=== PATIENT | female | born 1990 | race Two or more races ===

== ENCOUNTER 2016-09-30 06:25 | Day surgery (SDC) | payer OTHER ==
[~2016-09-30 06:25] MED LIST: Lactated Ringers 1,000 ML IV SCH
--- NOTE | 2016-09-30 07:07 | PCM.PREANE ---
Preanesthetic Assessment - Anesthesia/Transfusion/Family Hx Anesthesia History: Prior Anesthesia Without Reaction Family History of Anesthesia Reaction: No Transfusion History: No Prior Transfusion(s) Intubation History: Unknown - Review of Systems General: No Symptoms Pulmonary: No Symptoms Cardiovascular: No Symptoms Gastrointestinal: No symptoms, Nausea Other: Reports: None - Physical Assessment NPO Status Date: 09/29/16 NPO Status Time: 21:00 O2 Sat by Pulse Oximetry: 98 Respiratory Rate: 16 Vital Signs: Last Vital Signs Temp 36.5 C 09/30/16 06:45 Pulse 83 09/30/16 06:45 Resp 16 09/30/16 06:45 BP 111/60 09/30/16 06:45 Pulse Ox 98 09/30/16 06:45 Height: 1.57 m Weight: 86.636 kg ASA Class: 2 Mental Status: Alert & Oriented x3 Airway Class: Mallampati = 2 Dentition: Reports: Normal Dentition Thyro-Mental Finger Breadths: 3 Mouth Opening Finger Breadths: 3 ROM/Head Extension: Full Lungs: Clear to auscultation, Normal respiratory effort Cardiovascular: Regular Rate, Regular Rhythm - Allergies Allergies/Adverse Reactions: Allergies Allergy/AdvReac Type Severity Reaction Status Date / Time No Known Allergies Allergy Verified 09/28/16 15:49 - Blood Blood Available: No - Anesthesia Plan Pre-Op Medication Ordered: None - Acknowledgements Anesthesia Type Planned: General Anesthesia Pt an Appropriate Candidate for the Planned Anesthesia: Yes Alternatives and Risks of Anesthesia Discussed w Pt/Guardian: Yes Pt/Guardian Understands and Agrees with Anesthesia Plan: Yes PreAnesthesia Questionnaire Genitourinary History: Reports: None 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 [No Known Home Meds] 09/28/16 [History] - CURRENT (IN HOUSE) MEDS Current Meds: Current Medications Lactated Ringer's (Ringers, Lactated) 1,000 mls @ 125 mls/hr IV ASDIRECTED NATE Last Admin: 09/30/16 06:46 Dose: 125 mls/hr
[2016-09-30] MEDS ORDERED: Ketorolac 30 MG/ML SDV ONE (07:17)
[2016-09-30] MEDS ORDERED: Ondansetron 4 MG/2 ML SDV ONE (07:17)
[2016-09-30] MEDS ORDERED: Lidocaine 2% 5 ML SDV ONE (07:17)
[2016-09-30] MEDS ORDERED: Propofol 200 MG/20 ML SDV ONE (07:18)
[2016-09-30] MEDS ORDERED: Midazolam 1 MG/ML 2 ML SDV ONE (07:18)
[2016-09-30] MEDS ORDERED: fentaNYL 100 MCG/2 ML SDV ONE (07:18)
[2016-09-30] MEDS ORDERED: Morphine 4 MG/ML Syringe IVPUSH PRN (08:40)
[2016-09-30] MEDS ORDERED: Acetaminophen/oxyCODONE 325-5 MG Tab PO PRN ×2 (08:40)
[2016-09-30] MEDS ORDERED: Promethazine 25 MG/ML SDV IM PRN (08:40)
[2016-09-30] MEDS ORDERED: Ketorolac 30 MG/ML SDV IVPUSH ONE (08:40)
[2016-09-30] MEDS ORDERED: Morphine 2 MG/ML Syringe IVPUSH PRN (08:40)
[2016-09-30] MEDS ORDERED: Ondansetron 4 MG/2 ML SDV IVPUSH PRN (08:40)
--- NOTE | 2016-09-30 08:43 | PCM.OPNOTE ---
- General Post-Op/Procedure Note Date of Surgery/Procedure: 09/30/16 Findings: POC Pre Op Diagnosis: Blighted Ovum Post-Op Diagnosis: Same Anesthesia Technique: General mask Primary Surgeon: Morgan Bernstein Line Server: Lina Garcia EBL in mLs: 50 Complications: None Condition: Good
--- NOTE | 2016-09-30 08:44 | PCM.DCSUM1 ---
Discharge Summary - Discharge Data Discharge Date: 09/30/16 Discharge Disposition: Home, Self-Care 01 Condition: Good - Patient Instructions Diet: Usual Diet as Tolerated Activity: As Tolerated Notify Provider of: Fever, Increased Pain, Swelling and Redness, Nausea and/or Vomiting - Discharge Plan Home Medications: Home Meds . [No Known Home Meds] 09/28/16 [History] - General Info Date of Service: 09/30/16 Functional Status: Reports: pain controlled - Review of Systems General: Reports: No Symptoms HEENT: Reports: no symptoms Pulmonary: Reports: no symptoms Cardiovascular: Reports: No Symptoms Gastrointestinal: Reports: No symptoms Genitourinary: Reports: no symptoms Musculoskeletal: Reports: no symptoms Skin: Reports: no symptoms Neurological: Reports: No Symptoms Psychiatric: Reports: no symptoms - Patient Data Vitals - Most Recent: Last Vital Signs Temp 36.6 C 09/30/16 08:33 Pulse 98 09/30/16 08:42 Resp 18 09/30/16 08:33 BP 95/54 L 09/30/16 08:42 Pulse Ox 100 09/30/16 08:33 Weight - Most Recent: 86.636 kg Lab Results - Last 24 hrs: Laboratory Results - last 24 hr 09/30/16 09/30/16 Range/Units 06:23 06:23 WBC 6.50 (4.0-11.0) K/uL RBC 4.28 L (4.30-5.90) M/uL Hgb 12.0 (12.0-16.0) g/dL Hct 36.2 (36.0-46.0) % MCV 84.6 (80.0-98.0) fL MCH 28.0 (27.0-32.0) pg MCHC 33.1 (31.0-37.0) g/dL RDW Std Deviation 48.4 (28.0-62.0) fl RDW Coeff of Shilpi 16 H (11.0-15.0) % Plt Count 206 (150-400) K/uL MPV 11.40 (7.40-12.00) fL Nucleated RBC % 0.0 /100WBC Nucleated RBCs # 0 K/uL Blood Type A POSITIVE Antibody Screen NEGATIVE Med Orders - Current: Current Medications Fentanyl (Sublimaze) 50 mcg IVPUSH Q5M PRN PRN Reason: Pain (severe 7-10) Stop: 10/01/16 08:38 Lactated Ringer's (Ringers, Lactated) 1,000 mls @ 125 mls/hr IV ASDIRECTED NATE Last Admin: 09/30/16 06:46 Dose: 125 mls/hr Ketorolac Tromethamine (Toradol) 30 mg IVPUSH ONETIME ONE Stop: 09/30/16 08:41 Ketorolac Tromethamine (Toradol) 30 mg IVPUSH Q6H PRN PRN Reason: Pain (severe 7-10) Stop: 10/05/16 08:40 Morphine Sulfate (Morphine) 2 mg IVPUSH Q2H PRN PRN Reason: Pain (severe 7-10) Morphine Sulfate (Morphine) 4 mg IVPUSH Q2H PRN PRN Reason: Pain (severe 7-10) Ondansetron HCl (Zofran) 4 mg IVPUSH Q6H PRN PRN Reason: Nausea/Vomiting Oxycodone/Acetaminophen (Percocet 325-5 Mg) 1 tab PO Q4H PRN PRN Reason: Pain (moderate 4-6) Oxycodone/Acetaminophen (Percocet 325-5 Mg) 2 tab PO Q4H PRN PRN Reason: Pain (moderate 4-6) Promethazine HCl (Phenergan) 25 mg IM Q6H PRN PRN Reason: Nausea/Vomiting Discontinued Medications Fentanyl (Sublimaze) Confirm Administered Dose 100 mcg .ROUTE .STK-MED ONE Stop: 09/30/16 07:19 Ketorolac Tromethamine (Toradol) Confirm Administered Dose 30 mg .ROUTE .STK- MED ONE Stop: 09/30/16 07:18 Lidocaine (Xylocaine-Mpf 2%) Confirm Administered Dose 5 ml .ROUTE .STK-MED ONE Stop: 09/30/16 07:18 Midazolam HCl (Versed 1 Mg/Ml) Confirm Administered Dose 2 mg .ROUTE .STK-MED ONE Stop: 09/30/16 07:19 Ondansetron HCl (Zofran) Confirm Administered Dose 4 mg .ROUTE .STK-MED ONE Stop: 09/30/16 07:18 Propofol (Diprivan 20 Ml) Confirm Administered Dose 200 mg .ROUTE .STK-MED ONE Stop: 09/30/16 07:19 - Exam General: Reports: alert, oriented HEENT: Reports: Pupils equal, Pupils reactive, EOMI, Mucous membr. moist/pink Neck: Reports: supple Lungs: Reports: Clear to auscultation, Normal respiratory effort Cardiovascular: Reports: Regular Rate, Regular Rhythm Abdomen: Reports: bowel sounds present, soft, no tenderness, no distension (Female) Exam: Normal External Exam, Normal Speculum Exam, Normal Bimanual Exam Rectal (Female) Exam: Normal Exam, Normal Rectal Tone Back Exam: Reports: Normal Inspection, Full Range of Motion Extremities: Reports: no edema, normal pulses Skin: Reports: warm, dry, intact Wound/Incisions: Reports: healing well Neurological: Reports: no new focal deficit Psy/Mental Status: Reports: alert, normal affect, normal mood *Q Meaningful Use (DIS) - VTE *Q VTE Criteria *Q: - Stroke *Q Stroke Criteria *Q: - AMI *Q AMI Criteria *Q:
[2016-09-30] MEDS: fentaNYL 100 MCG/2 ML SDV IVPUSH PRN ×2 (08:45→08:50)
--- NOTE | 2016-09-30 09:17 | PCM.POSTAN ---
POST ANESTHESIA ASSESSMENT - MENTAL STATUS Mental Status: alert, oriented - RESPIRATORY Respiratory Status: respiratory rate WNL, airway patent, O2 saturation stable - CARDIOVASCULAR CV Status: pulse rate WNL, blood pressure stable - GASTROINTESTINAL GI Status: no symptoms - PAIN Pain Score: 5 - POST OP HYDRATION Hydration Status: adequate & stable - OBSERVATIONS Free Text/Narrative:: no anesthesia problems
[2016-09-30 10:12] VITALS: BP 103/68
--- NOTE | 2016-09-30 10:47 | OR ---
SURGEON: Morgan Bernstein MD DATE OF PROCEDURE: PREOPERATIVE DIAGNOSIS: Blighted ovum. POSTOPERATIVE DIAGNOSIS: Blighted ovum. OPERATION PERFORMED: Dilatation and evacuation. DIRECTOR SUPPLIER QUALITY: DAYA Sanchez. ANESTHESIA: General mask. ESTIMATED BLOOD LOSS: 50 mL. COMPLICATION: None. INDICATION: This patient is 25. She was seen by our nurse quarrying specialist in the clinic, at the time of seeing the patient was 8 to 9 weeks. Vaginal probe ultrasound shows pole with no cardiac activity that was repeated and confirmed by repeated ultrasound. The patient was admitted for dilatation and evacuation after explaining all the options to her. PROCEDURE IN DETAIL: The patient was brought to the OR, properly identified, and after adequate level of anesthesia, the patient was prepped and draped in sterile fashion as usual. Weighted speculum was placed in the vagina. Straight catheter was used to empty the bladder. Single-tooth tenaculum was applied to the cervix and the cervix sequentially dilated to accommodate #8 cannula. The cannula was placed in the endometrial cavity and that cavity was suctioned, curettage, and evacuated completely from all products of conception. Once this was done, the procedure was ended, and cannula was removed from the endometrial cavity. There was minimum vaginal bleeding and after making sure that the patient has no noted bleeding, the procedure ended. Instrument and sponge count were correct. The patient tolerated the procedure well, went to recovery room in stable general condition. ELLIE / MICHAELA /[id number]
[2016-09-30] MEDS ORDERED: Ketorolac 30 MG/ML SDV IVPUSH PRN (15:00)
== END 2016-09-30 10:10 | disposition home or self-care (01) ==
LOC: MW.SDS 06:25
PROVIDERS: ATTEND Obstetrics & Gynecology
PROC: 10D07Z8 Extraction of Products of Conception, Other, Via Natural or Artificial Opening (ICD-10-PCS; principal; 2016-09-30)
DX: O02.0 Blighted ovum and nonhydatidiform mole (principal); E66.9 Obesity, unspecified; Z79.899 Other long term (current) drug therapy; Z98.890 Other specified postprocedural states; Z68.34 Body mass index [BMI] 34.0-34.9, adult
CPT/HCPCS: 36415; 59820; 85027; 86850; 86900; 86901; J1885; J2250; J2405; J3010; J7120; 01965; 88305; J2704

== ENCOUNTER 2017-04-16 11:17 | Emergency (ER) | payer OTHER, SELFPAY ==
--- NOTE | 2017-04-16 11:35 | EDM.PDOC ---
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 Past medical history: As per history of present illness and as reviewed below otherwise noncontributory. Surgical history: As per history of present illness and as reviewed below otherwise noncontributory. Social history: No reported history of drug or alcohol abuse. Family history: As per history of present illness and as reviewed below otherwise noncontributory. Physical exam: HEENT: Atraumatic, normocephalic, pupils reactive, negative for conjunctival pallor or scleral icterus, mucous membranes moist, throat clear, neck supple, nontender, trachea midline. Lungs: Clear to auscultation, breath sounds equal bilaterally, chest nontender. Heart: S1S2, regular, negative for clicks, rubs, or JVD. Abdomen: Soft, nondistended, nontender. Negative for masses or hepatosplenomegaly. Negative for costovertebral tenderness. Pelvis: Stable nontender. Genitourinary: Cervix closed no products of conception or clots there is a scant amount of blood in the vaginal vault otherwise no mass scar or lesion Rectal: Deferred. Extremities: Atraumatic, negative for cords or calf pain. Neurovascular unremarkable. Neuro: Awake, alert, oriented. Cranial nerves II through XII unremarkable. Cerebellum unremarkable. Motor and sensory unremarkable throughout. Exam nonfocal. Diagnostics: []Lab as below OB ultrasound limited Therapeutics: Vaginal rest Follow-up with Dr. Figueroa Impression: []Threatened IUP ABO type--A+ heart tones 160s LMP 11/01/2017 12 weeks 5 days by crown-rump length on today's ultrasound Cervix closed Definitive disposition and diagnosis as appropriate pending reevaluation and review of above. 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 ED EXAM, GENERAL - Physical Exam Exam: See Below Course - Vital Signs Last Recorded V/S: Last Vital Signs Temp 97.8 F 04/16/17 11:28 Pulse 97 04/16/17 11:28 Resp 18 04/16/17 11:28 BP 121/74 04/16/17 11:28 Pulse Ox 98 04/16/17 11:28 - Orders/Labs/Meds Orders: Active Orders 24 hr Category Date Time Status Heart Tones [ Heart Rate] [RC] Click to Edit Care 04/16/17 11:35 Inactive OB Ltd 1 or More Fetus [US] Stat Exams 04/16/17 11:33 Taken Labs: Laboratory Tests 04/16/17 04/16/17 04/16/17 Range/Units 11:42 11:42 11:42 WBC 7.50 (4.0-11.0) K/uL RBC 4.55 (4.30-5.90) M/uL Hgb 13.1 (12.0-16.0) g/dL Hct 38.8 (36.0-46.0) % MCV 85.3 (80.0-98.0) fL MCH 28.8 (27.0-32.0) pg MCHC 33.8 (31.0-37.0) g/dL RDW Std Deviation 48.4 (28.0-62.0) fl RDW Coeff of Shilpi 16 H (11.0-15.0) % Plt Count 212 (150-400) K/uL MPV 11.10 (7.40-12.00) fL Neut % (Auto) 66.7 (48.0-80.0) % Lymph % (Auto) 22.7 (16.0-40.0) % [place] % (Auto) 5.5 (0.0-15.0) % Eos % (Auto) 4.8 (0.0-7.0) % Baso % (Auto) 0.3 (0.0-1.5) % Neut # (Auto) 5.0 (1.4-5.7) K/uL Lymph # (Auto) 1.7 (0.6-2.4) K/uL [place] # (Auto) 0.4 (0.0-0.8) K/uL Eos # (Auto) 0.4 (0.0-0.7) K/uL Baso # (Auto) 0.0 (0.0-0.1) K/uL Nucleated RBC % 0.0 /100WBC Nucleated RBCs # 0 K/uL Sodium 139 (136-146) mmol/L Potassium 3.9 (3.5-5.1) mmol/L Chloride 107 (98-110) mmol/L Carbon Dioxide 21 (21-31) mmol/L BUN 7 (6.0-23.0) mg/dL Creatinine 0.8 (0.6-1.5) mg/dL Est Cr Clr Drug Dosing 84.28 mL/min Estimated GFR (MDRD) > 60.0 ml/min Glucose 82 (60-110) mg/dL Calcium 9.4 (8.8-10.8) mg/dL Total Bilirubin 0.4 (0.1-1.5) mg/dL AST 23 (5-40) IU/L ALT 40 (8-54) IU/L Alkaline Phosphatase 57 (40-150) Total Protein 7.6 (6.0-8.0) g/dL Albumin 4.1 (3.5-5.0) g/dL Globulin 3.5 (2.0-3.5) g/dL Albumin/Globulin Ratio 1.2 L (1.3-2.8) HCG, Quant mIU/mL Blood Type A POSITIVE 04/16/17 Range/Units 11:42 WBC (4.0-11.0) K/uL RBC (4.30-5.90) M/uL Hgb (12.0-16.0) g/dL Hct (36.0-46.0) % MCV (80.0-98.0) fL MCH (27.0-32.0) pg MCHC (31.0-37.0) g/dL RDW Std Deviation (28.0-62.0) fl RDW Coeff of Shilpi (11.0-15.0) % Plt Count (150-400) K/uL MPV (7.40-12.00) fL Neut % (Auto) (48.0-80.0) % Lymph % (Auto) (16.0-40.0) % [place] % (Auto) (0.0-15.0) % Eos % (Auto) (0.0-7.0) % Baso % (Auto) (0.0-1.5) % Neut # (Auto) (1.4-5.7) K/uL Lymph # (Auto) (0.6-2.4) K/uL [place] # (Auto) (0.0-0.8) K/uL Eos # (Auto) (0.0-0.7) K/uL Baso # (Auto) (0.0-0.1) K/uL Nucleated RBC % /100WBC Nucleated RBCs # K/uL Sodium (136-146) mmol/L Potassium (3.5-5.1) mmol/L Chloride (98-110) mmol/L Carbon Dioxide (21-31) mmol/L BUN (6.0-23.0) mg/dL Creatinine (0.6-1.5) mg/dL Est Cr Clr Drug Dosing mL/min Estimated GFR (MDRD) ml/min Glucose (60-110) mg/dL Calcium (8.8-10.8) mg/dL Total Bilirubin (0.1-1.5) mg/dL AST (5-40) IU/L ALT (8-54) IU/L Alkaline Phosphatase (40-150) Total Protein (6.0-8.0) g/dL Albumin (3.5-5.0) g/dL Globulin (2.0-3.5) g/dL Albumin/Globulin Ratio (1.3-2.8) HCG, Quant 26297.5 mIU/mL Blood Type Departure - Departure Time of Disposition: 13:43 Disposition: Home, Self-Care 01 Condition: Good Clinical Impression: Threatened - Discharge Information Referrals: Morgan Bernstein MD [Primary Care Provider] - Forms: ED Department Discharge Additional Instructions: Vaginal rest as discussed no douching tampons nothing per vagina Return if symptoms persist or worsen or new concerning symptoms develop Follow-up with Dr. bernstein as scheduled sooner as needed The following information is given to patients seen in the emergency department who are being discharged to home. This information is to outline your options for follow-up care. We provide all patients seen in our emergency department with a follow-up referral. The need for follow-up, as well as the timing and circumstances, are variable depending upon the specifics of your emergency department visit. If you don't have a primary care physician on staff, we will provide you with a referral. We always advise you to contact your personal physician following an emergency department visit to inform them of the circumstance of the visit and for follow-up with them and/or the need for any referrals to a consulting specialist. The emergency department will also refer you to a specialist when appropriate. This referral assures that you have the opportunity for follow-up care with a specialist. All of these measure are taken in an effort to provide you with optimal care, which includes your follow-up. Under all circumstances we always encourage you to contact your private physician who remains a resource for coordinating your care. When calling for follow-up care, please make the office aware that this follow-up is from your recent emergency room visit. If for any reason you are refused follow-up, please contact the [facility] emergency department at and asked to speak to the emergency department charge nurse. - My Orders Last 24 Hours: My Active Orders 04/16/17 11:33 OB Ltd 1 or More Fetus [US] Stat 04/16/17 11:35 Heart Tones [ Heart Rate] [RC] Click to Edit - Assessment/Plan Last 24 Hours: My Active Orders 04/16/17 11:33 OB Ltd 1 or More Fetus [US] Stat 04/16/17 11:35 Heart Tones [ Heart Rate] [RC] Click to Edit
[2017-04-16 12:09] LABS: CHLORIDE,CL 107 mmol/L (98-110); SODIUM,NA 139 mmol/L (136-146)
[2017-04-16 14:03] VITALS: BP 122/68
--- NOTE | 2017-04-18 14:01 | US ---
EXAM DATE: 04/16/17 PATIENT'S AGE: 26 Patient: VIOLETTA BRICEÑO Facility: [place], [place] Site . Site : 1990 Study: US OB Pelvis [id number]/16/2017 12:36:27 PM Ordering Physician: Maricruz Martinez Final Report: INDICATION: Vaginal bleeding. TECHNIQUE: Transabdominal scanning was performed. COMPARISON: None. FINDINGS: There is a living IUP with gestational age of 11 weeks 4 days by LMP and 12 weeks 5 days by today`s crown-rump length. EDC based on LMP is 11/01/2017. The embryonic heart rate is measured at 160 beats per minute. The placenta is forming anteriorly. A subchorionic hemorrhage of small to moderate size is demonstrated superiorly. Neither ovary is visualized. No adnexal mass or free fluid is apparent. IMPRESSION: 1. Living IUP with gestational age of 11 weeks 4 days by LMP and 12 weeks 5 days by today`s crown-rump length. 2. Subchorionic hemorrhage and small to moderate size. Dictated by Anish Llanes MD @ Apr 16 2017 1:24PM (Electronic Signature) Report Signed by Proxy. WHIT
== END 2017-04-16 14:01 | disposition home or self-care (01) ==
LOC: MW.ED 11:17
DX: O20.0 Threatened abortion (principal); Z3A.11 11 weeks gestation of pregnancy; E66.9 Obesity, unspecified
CPT/HCPCS: 36415; 76815; 76815-26; 80053; 84702; 85025; 86900; 86901; 99282; 99284-25

== ENCOUNTER 2017-10-24 04:36 | Inpatient (IN) | payer MEDICAID ==
[2017-10-24] MEDS ORDERED: Methylergonovine 0.2 MG/1 ML Amp IM PRN (06:01)
[2017-10-24] MEDS ORDERED: Water For Irrigation,Sterile 1,000 ML Container IRR PRN (06:01)
[2017-10-24] MEDS ORDERED: Sodium Chloride 0.9% 2.5 ML Syringe FLUSH PRN (06:01)
[2017-10-24] MEDS ORDERED: Butorphanol 1 MG/ML SDV IVPUSH PRN (06:01)
[2017-10-24] MEDS ORDERED: Misoprostol 200 MCG Tab PO PRN (06:01)
[2017-10-24] MEDS ORDERED: Tranexamic Acid 1,000 MG in Sodium Chloride 0.9% 100 ML IV PRN (06:01)
[2017-10-24] MEDS ORDERED: Carboprost Tromethamine 250 MCG/1 ML Amp IM PRN (06:01)
[2017-10-24] MEDS ORDERED: Nalbuphine 10 MG/ML 10 ML MDV IVPUSH PRN ×2 (06:01→08:42)
[2017-10-24] MEDS ORDERED: Lidocaine 1% 50 ML MDV INJECT PRN (06:01)
[2017-10-24] MEDS ORDERED: Sodium Chloride 0.9% 10 ML Syringe FLUSH PRN (06:01)
[2017-10-24] MEDS ORDERED: Lactated Ringers 1,000 ML IV SCH (06:15)
[2017-10-24] MEDS ORDERED: Morphine PF 1 MG/ML Amp ONE (07:25)
[2017-10-24] MEDS ORDERED: ePHEDrine 50 MG/ML SDV ONE (07:25)
[2017-10-24] MEDS ORDERED: ceFAZolin/Dextrose,Iso-Osmotic 2 GM/50 ML Duplex Bag IV ONE (07:26)
[2017-10-24] MEDS ORDERED: Nitroglycerin/D5W 0 MG/0 ML BOTTLE ONE (07:26)
[2017-10-24] MEDS ORDERED: Oxytocin 10 Units/1 ML SDV ONE (07:33)
[2017-10-24] MEDS ORDERED: Sodium Chloride 0.9% 20 ML ONE (07:33)
--- NOTE | 2017-10-24 07:36 | PCM.PREANE ---
Preanesthetic Assessment - Anesthesia/Transfusion/Family Hx Anesthesia History: Prior Anesthesia Without Reaction Family History of Anesthesia Reaction: No Transfusion History: No Prior Transfusion(s) Intubation History: Unknown - Review of Systems General: No Symptoms Pulmonary: No Symptoms Cardiovascular: No Symptoms Gastrointestinal: No Symptoms Neurological: No Symptoms - Physical Assessment NPO Status Date: 10/23/17 NPO Status Time: 18:00 Height: 1.57 m Weight: 94.801 kg ASA Class: 3 Mental Status: Alert & Oriented x3 Airway Class: Mallampati = 2 Dentition: Reports: Normal Dentition ROM/Head Extension: Full Lungs: Clear to Auscultation, Normal Respiratory Effort, Crackles Cardiovascular: Regular Rhythm - Lab Values: Laboratory Last Values WBC 11.19 K/uL (4.0-11.0) H 10/24/17 06:24 RBC 3.84 M/uL (4.30-5.90) L 10/24/17 06:24 Hgb 11.7 g/dL (12.0-16.0) L 10/24/17 06:24 Hct 34.0 % (36.0-46.0) L 10/24/17 06:24 MCV 88.5 fL (80.0-98.0) 10/24/17 06:24 MCH 30.5 pg (27.0-32.0) 10/24/17 06:24 MCHC 34.4 g/dL (31.0-37.0) 10/24/17 06:24 RDW Std Deviation 47.0 fl (28.0-62.0) 10/24/17 06:24 RDW Coeff of Shilpi 15 % (11.0-15.0) 10/24/17 06:24 Plt Count 141 K/uL (150-400) L 10/24/17 06:24 MPV 11.60 fL (7.40-12.00) 10/24/17 06:24 Nucleated RBC % 0.0 /100WBC 10/24/17 06:24 Nucleated RBCs # 0 K/uL 10/24/17 06:24 INR 0.90 10/24/17 06:24 APTT 25.4 SEC (18.6-31.3) 10/24/17 06:24 Fibrinogen 343 mg/dL (215-411) 10/24/17 06:24 Blood Type A POSITIVE 10/24/17 06:24 Antibody Screen NEGATIVE 10/24/17 06:24 KB Screen SEE NOTE 10/24/17 06:24 Crossmatch See Detail 10/24/17 06:24 - Allergies Allergies/Adverse Reactions: Allergies Allergy/AdvReac Type Severity Reaction Status Date / Time No Known Allergies Allergy Verified 10/21/17 01:08 - Anesthesia Plan Pre-Op Medication Ordered: Antacids - Acknowledgements Anesthesia Type Planned: Spinal Pt an Appropriate Candidate for the Planned Anesthesia: Yes Alternatives and Risks of Anesthesia Discussed w Pt/Guardian: Yes Pt/Guardian Understands and Agrees with Anesthesia Plan: Yes Additional Comments: urgent called on patient who just arrived in active labor with dx of vaginal bleeding/ presumed abruption. Bleeding minor at this point. Pt G5. Has iv x 2, is cooperative but anxious. Chart reviewed, pt examined, discussion made with hand mold maker. Plan urgent c/s, with planned spinal anesthetic, since no immediate danger to mother or child. Will change plan to emergent GET if conditions change. 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) Musculoskeletal History: Reports: None Neurological History: Reports: None Psychiatric History: Reports: None Endocrine/Metabolic History: Reports: None, Obesity/BMI 30+ Hematologic History: Reports: None Immunologic History: Reports: None Oncologic (Cancer) History: Reports: None Dermatologic History: Reports: None - Infectious Disease History Infectious Disease History: Reports: Chicken Pox - Past Surgical History Head Surgeries/Procedures: Reports: None GI Surgical History: Reports: None Female Surgical History: Reports: Section, Other (See Below) Other Female Surgeries/Procedures: Breech presentation - SUBSTANCE USE Smoking Status *Q: Never Smoker Second Hand Smoke Exposure: No Recreational Drug Use History: No - HOME MEDS Home Medications: Home Meds Zad786/FA/Omega3/Dha/Fish Oil [ Gummies] 1 each PO DAILY 04/16/17 [ History] - CURRENT (IN HOUSE) MEDS Current Meds: Current Medications Butorphanol Tartrate (Stadol) 1 mg IVPUSH Q1H PRN PRN Reason: Pain Carboprost Tromethamine (Hemabate Ds) 250 mcg IM ASDIRECTED PRN PRN Reason: Post Hemorrhage Tranexamic Acid 1,000 mg/ (Sodium Chloride) 110 mls @ 660 mls/hr IV ONETIME PRN PRN Reason: Bleeding Lactated Ringer's (Ringers, Lactated) 1,000 mls @ 150 mls/hr IV ASDIRECTED NATE Last Admin: 10/24/17 06:41 Dose: 150 mls/hr Lidocaine HCl (Xylocaine 1%) 50 ml INJECT .ONCE PRN PRN Reason: Laceration repair Methylergonovine Maleate (Methergine) 0.2 mg IM ASDIRECTED PRN PRN Reason: Post Hemorrhage Misoprostol (Cytotec) 200 mcg PO .ONCE PRN PRN Reason: Post Hemorrhage Nalbuphine HCl (Nubain) 10 mg IVPUSH Q1H PRN PRN Reason: Pain (severe 7-10) Sodium Chloride (Saline Flush) 10 ml FLUSH ASDIRECTED PRN PRN Reason: Keep Vein Open Sodium Chloride (Saline Flush) 2.5 ml FLUSH ASDIRECTED PRN PRN Reason: Keep Vein Open Sterile Water (Sterile Water For Irrigation) 1,000 ml IRR ASDIRECTED PRN PRN Reason: delivery Discontinued Medications Cefazolin Sodium/Dextrose (Ancef) Confirm Administered Dose 2 gm IV .STK-MED ONE Stop: 10/24/17 07:27 Ephedrine Sulfate (Ephedrine Sulfate) Confirm Administered Dose 50 mg .ROUTE .STK-MED ONE Stop: 10/24/17 07:26 Nitroglycerin/Dextrose (Nitroglycerin 25 Mg/D5w 250 Ml) Confirm Administered Dose 25 mg in 250 mls @ as directed .ROUTE .STK-MED ONE Stop: 10/24/17 07:27 Morphine Sulfate (Duramorph Pf) Confirm Administered Dose 1 mg .ROUTE .STK-MED ONE Stop: 10/24/17 07:26
[2017-10-24] MEDS ORDERED: Phenylephrine/Normal Saline 100 MCG/ML 10 ML Syringe ONE (07:49)
[2017-10-24] MEDS ORDERED: Ondansetron 4 MG/2 ML SDV ONE (08:00)
[2017-10-24] MEDS ORDERED: Ondansetron 4 MG/2 ML SDV IV PRN (08:33)
[2017-10-24] MEDS ORDERED: Bisacodyl 10 MG Supp RECTAL PRN (08:33)
[2017-10-24] MEDS ORDERED: diphenhydrAMINE 50 MG/ML SDV IVPUSH PRN (08:33)
[2017-10-24] MEDS ORDERED: Ibuprofen 800 MG Tab PO PRN (08:33)
[2017-10-24] MEDS ORDERED: Simethicone 80 MG Tab.Chew PO PRN (08:33)
[2017-10-24] MEDS ORDERED: Lanolin 100% Cream 7 GM Tube TOP PRN (08:33)
[2017-10-24] MEDS ORDERED: Aluminum Hydroxide/Magnesium Hydroxide/Simethicone Susp 30 ML Cup PO PRN (08:33)
[2017-10-24] MEDS ORDERED: fentaNYL 100 MCG/2 ML SDV IVPUSH PRN (08:42)
--- NOTE | 2017-10-24 08:46 | PCM.OPNOTE ---
- General Post-Op/Procedure Note Date of Surgery/Procedure: 10/24/17 Operative Procedure(s): Repeat LTCS Findings: Viable male APGARs 9, 9 weight 3760 gm. Abrupted placenta--to pathology. Pre Op Diagnosis: 38/5 week IUP. Placental abruption. Previous c section Post-Op Diagnosis: Same Anesthesia Technique: Spinal Primary Surgeon: Macy Cordero Pathology: placenta to path Fluid Replacement, Intraop: 1,500 EBL in mLs: 700 Complications: none known Condition: Good Free Text/Narrative:: Intake & Output 10/23/17 10/24/17 10/24/17 22:59 06:59 14:59 Output Total 100 Balance -100 Dictation [id number]
--- NOTE | 2017-10-24 09:27 | PCM.POSTAN ---
POST ANESTHESIA ASSESSMENT - MENTAL STATUS Mental Status: Alert, Oriented - RESPIRATORY Respiratory Status: Respiratory Rate WNL, Airway Patent, O2 Saturation Stable - CARDIOVASCULAR CV Status: Pulse Rate WNL, Blood Pressure Stable - GASTROINTESTINAL GI Status: No Symptoms - POST OP HYDRATION Hydration Status: Adequate & Stable
[2017-10-24] MEDS: Docusate Sodium 100 MG Cap PO SCH (10:09)
[2017-10-24] MEDS ORDERED: Promethazine 25 MG/ML SDV IM ONE (11:42)
--- NOTE | 2017-10-24 13:36 | OR ---
SURGEON: Macy Cordero M.D. DATE OF PROCEDURE: 10/24/2017 PREOPERATIVE DIAGNOSES: 1. 38 and 5 week intrauterine . 2. Placental abruption. 3. Previous section. POSTOPERATIVE DIAGNOSES: 1. 38 and 5 week intrauterine . 2. Placental abruption. 3. Previous section. PROCEDURE: Repeat low-transverse section. ANESTHESIA: Spinal. ESTIMATED BLOOD LOSS: 700 mL. FLUID: 1500 mL crystalloid in OR. FINDINGS: Viable male score 9 at 1 minute, 9 at 5 minutes. Weight of 3760 g. Placental abruption. DISPOSITION: The patient to PACU. Infant to nursery, stable. PROCEDURE IN DETAIL: Radha is a 26-year-old, G5, P2-0-2-2, at 38 and 5 weeks' gestational age, who presents acutely this morning with intense contractions occurring approximately 1 minute apart. With monitoring the heart tones in the 130s with variability and good accelerations, but there is tachy systole present. Shortly after being monitored, she was found to be 2 cm dilated with membranes still intact. Shortly after being monitored, there was a bright red gush of blood vaginally. I was called. Labs were performed. Two IVs were initiated, came in to assess the patient. She is having still having contractions every 1 minute. She still only 2 to 3 cm dilated, head at -3. Membranes still intact. Findings are consistent with placental abruption. I have explained this to the patient and her . Even though she had initially wanted to trial of labor after , given the clinical scenario present, I advised it is best to proceed with delivery. They voiced understanding, agreed to proceed. Risks of procedure discussed including infection, bleeding, possible trauma surrounding bowel, bladder, ureter, in case of excessive blood loss need for blood transfusion, rare lifesaving circumstances, need for hysterectomy, risk for thromboembolic event, risk of anesthesia. Proper consent obtained. The patient was taken to the operating room where she underwent spinal anesthetic. heart tones are still 130s. She was placed in dorsal supine position leftward tilt. SCDs to lower extremities. Boyle to gravity. She was prepped and draped in the usual sterile fashion. A time-out was performed. Anesthesia was tested and found to be adequate. Previous Pfannenstiel scar was now excised. Subcutaneous tissue was incised down the level of the midline. Fascia was incised laterally, sharply and bluntly. Superior aspect of the fascia tented up, dissected sharply and bluntly from underlying muscles. Similar aspect performed in the inferior aspect of fascia. Rectus muscles were in the midline. The peritoneum was entered. Rectus muscles and peritoneum were lateralized bluntly. There was a sanguinous peritoneal fluid within the abdominal cavity noted. Self-retaining retractor now gently placed. Uterovesical reflection was visualized. Bladder flap was created sharply and bluntly, mobilized away from lower uterine segment. There was ecchymosis already developing along the majority of the uterus, especially along the left lateral side. Low-transverse hysterotomy was performed. Uterine cavity was entered with blunt-end scalpel. Hysterotomy was lateralized bluntly. 's amniotomy was performed. Sanguineous amniotic fluid was noted. The infant's head was flexed, delivered from the pelvis. The 's head was delivered followed by anterior shoulder, posterior shoulder, and remainder of the body without difficulty. Nuchal cord x1 was reduced manually. The infant's oropharynx and nares bulb suctioned. Infant was crying vigorously. Cord was clamped x2 and cut. Infant was handed off to attending physician, Dr. Sapp. Cord arterial, cord venous, cord blood sampling obtained. There was copious amount of blood clots within the uterine cavity already. The placenta was partially abrupting and was easily delivered. This will be sent to Pathology for further analysis. The uterine cavity was cleared of all clot and debris. Hysterotomy was repaired using 0 Vicryl in continuous running locked fashion followed by a re-imbricating layer. There was ecchymosis along the left lateral aspect of the uterus extending all the way to the fundus and it covers the entire posterior aspect of the uterus. Two areas of bleeding along the right lateral aspect of the hysterotomy was repaired with 2 [id number] sutures, hemostasis thereafter evident. Posterior aspect of the uterus other than the ecchymosis found to be intact. Region was well irrigated and suction dried. Uterus returned to the abdominal cavity. Colonic gutters were cleared of all clot and debris, well irrigated and suction dried. The hysterotomy was once again inspected and found to be hemostatic. Self-retaining retractor now gently removed. Bladder blade was placed. Hysterotomy once again inspected and found to be hemostatic. Rectus muscles were reapproximated using 0 Vicryl in inverted mattress suture technique. Anterior aspect of the muscle, and posterior aspect of fascia were closely inspected. Any areas of oozing were cauterized. The rectus fascia was reapproximated using 0 Vicryl in continuous running fashion beginning laterally on each side and tied in the midline. Subcutaneous tissue was well irrigated and suction dried. Any areas of oozing were cauterized. Skin was reapproximated using 3-0 Vicryl in subcuticular fashion on a Ankur needle followed by Mastisol and half-inch Steri-Strips. Sponge, instrument, needle count were correct x2. The patient has tolerated the procedure well overall. Her vital signs remained stable with adequate urine output. She will go to PACU in stable condition, infant to nursery. KOKO JENNINGS /[id number]
[2017-10-24] MEDS: Lactated Ringers 1,000 ML IV SCH ×2 (13:58→21:49)
[2017-10-24] MEDS: Acetaminophen/oxyCODONE 325-5 MG Tab PO PRN (23:51)
[2017-10-25] MEDS ORDERED: hydrOXYzine Pamoate 25 MG Cap ONE (02:55)
[2017-10-25] MEDS: Acetaminophen/oxyCODONE 325-5 MG Tab PO PRN ×5 (04:47→21:10)
[2017-10-25 06:35] LABS: CHLORIDE,CL 106 mmol/L (98-107); SODIUM,NA 139 mmol/L (136-145)
[2017-10-25] MEDS: Docusate Sodium 100 MG Cap PO SCH ×3 (07:34→21:09)
[2017-10-26] MEDS: Acetaminophen/oxyCODONE 325-5 MG Tab PO PRN ×3 (01:15→11:08)
[2017-10-26 08:15] VITALS: BP 115/81
--- NOTE | 2017-10-26 08:52 | PCM.PNPP ---
- General Info Date of Service: 10/25/17 Functional Status: Reports: Pain Controlled - Review of Systems General: Reports: No Symptoms HEENT: Reports: No Symptoms Pulmonary: Reports: No Symptoms Cardiovascular: Reports: No Symptoms Gastrointestinal: Reports: No Symptoms Genitourinary: Reports: No Symptoms Musculoskeletal: Reports: No Symptoms Skin: Reports: No Symptoms Neurological: Reports: No Symptoms Psychiatric: Reports: No Symptoms - General Info Date of Service: 10/25/17 - Patient Data Vital Signs - Most Recent: Last Vital Signs Temp 36.3 C 10/26/17 07:50 Pulse 87 10/26/17 07:50 Resp 16 10/26/17 07:50 BP 115/81 10/26/17 07:50 Pulse Ox 99 10/26/17 07:50 Weight - Most Recent: 94.801 kg Med Orders - Current: Current Medications Al Hydroxide/Mg Hydroxide (Mag-Al Plus) 30 ml PO Q8H PRN PRN Reason: Heartburn Bisacodyl (Dulcolax) 10 mg RECTAL .ONCE PRN PRN Reason: Constipation Butorphanol Tartrate (Stadol) 1 mg IVPUSH Q1H PRN PRN Reason: Pain Carboprost Tromethamine (Hemabate Ds) 250 mcg IM ASDIRECTED PRN PRN Reason: Post Hemorrhage Diphenhydramine HCl (Benadryl) 25 mg IVPUSH Q6H PRN PRN Reason: Itching or Nausea Docusate Sodium (Colace) 100 mg PO BID [facility] Last Admin: 10/25/17 21:09 Dose: 100 mg Emollient Ointment (Lansinoh Hpa) 0 gm TOP ASDIRECTED PRN PRN Reason: Sore Nipples Tranexamic Acid 1,000 mg/ (Sodium Chloride) 110 mls @ 660 mls/hr IV ONETIME PRN PRN Reason: Bleeding Lactated Ringer's (Ringers, Lactated) 1,000 mls @ 150 mls/hr IV ASDIRECTED [facility] Last Admin: 10/24/17 06:41 Dose: 150 mls/hr Lactated Ringer's (Ringers, Lactated) 1,000 mls @ 125 mls/hr IV ASDIRECTED [facility] Last Admin: 10/24/17 21:49 Dose: 125 mls/hr Ibuprofen (Motrin) 800 mg PO Q8H PRN PRN Reason: mild pain or fever Lidocaine HCl (Xylocaine 1%) 50 ml INJECT .ONCE PRN PRN Reason: Laceration repair Methylergonovine Maleate (Methergine) 0.2 mg IM ASDIRECTED PRN PRN Reason: Post Hemorrhage Misoprostol (Cytotec) 200 mcg PO .ONCE PRN PRN Reason: Post Hemorrhage Nalbuphine HCl (Nubain) 10 mg IVPUSH Q1H PRN PRN Reason: Pain (severe 7-10) Ondansetron HCl (Zofran) 4 mg IV Q4H PRN PRN Reason: Nausea/Vomiting Oxycodone/Acetaminophen (Percocet 325-5 Mg) 1 tab PO Q4H PRN PRN Reason: Pain (moderate 4-6) Last Admin: 10/25/17 11:45 Dose: 1 tab Oxycodone/Acetaminophen (Percocet 325-5 Mg) 2 tab PO Q4H PRN PRN Reason: Pain (moderate 4-6) Last Admin: 10/26/17 05:45 Dose: 2 tab Simethicone (Simethicone) 80 mg PO Q4H PRN PRN Reason: Gas Sodium Chloride (Saline Flush) 10 ml FLUSH ASDIRECTED PRN PRN Reason: Keep Vein Open Sodium Chloride (Saline Flush) 2.5 ml FLUSH ASDIRECTED PRN PRN Reason: Keep Vein Open Sterile Water (Sterile Water For Irrigation) 1,000 ml IRR ASDIRECTED PRN PRN Reason: delivery Discontinued Medications Cefazolin Sodium/Dextrose (Ancef) Confirm Administered Dose 2 gm IV .STK-MED ONE Stop: 10/24/17 07:27 Ephedrine Sulfate (Ephedrine Sulfate) Confirm Administered Dose 50 mg .ROUTE .STK-MED ONE Stop: 10/24/17 07:26 Fentanyl (Sublimaze) 50 mcg IVPUSH Q5M PRN PRN Reason: Pain (severe 7-10) Stop: 10/25/17 08:42 Hydroxyzine Pamoate (Vistaril) Confirm Administered Dose 50 mg .ROUTE .STK-MED ONE Stop: 10/25/17 02:56 Last Admin: 10/26/17 03:30 Dose: Not Given Nitroglycerin/Dextrose (Nitroglycerin 25 Mg/D5w 250 Ml) Confirm Administered Dose 25 mg in 250 mls @ as directed .ROUTE .STK-MED ONE Stop: 10/24/17 07:27 Sodium Chloride (Normal Saline) Confirm Administered Dose 20 mls @ as directed .ROUTE .STK-MED ONE Stop: 10/24/17 07:34 Morphine Sulfate (Duramorph Pf) Confirm Administered Dose 1 mg .ROUTE .STK-MED ONE Stop: 10/24/17 07:26 Nalbuphine HCl (Nubain) 2.5 mg IVPUSH Q3H PRN PRN Reason: Pruritis Stop: 10/25/17 08:42 Last Admin: 10/24/17 14:09 Dose: 2.5 mg Ondansetron HCl (Zofran) Confirm Administered Dose 4 mg .ROUTE .STK-MED ONE Stop: 10/24/17 08:01 Oxytocin (Pitocin) Confirm Administered Dose 30 unit .ROUTE .STK-MED ONE Stop: 10/24/17 07:34 Phenylephrine HCl (Phenylephrine In Ns 100 Mcg/Ml) Confirm Administered Dose 1 mg .ROUTE .STK-MED ONE Stop: 10/24/17 07:50 Promethazine HCl (Phenergan) 25 mg IM ONETIME ONE Stop: 10/24/17 11:43 Last Admin: 10/24/17 11:55 Dose: 25 mg - Interaction Infant Disposition, : in Room with Family Interaction: Holding Infant Feeding: Attempted ; Nursed Fair/Poor Support Person: - Recovery Exam Fundal Tone: Firm Fundal Level: 1 Fingerbreadths Below Umbilicus Fundal Placement: Midline Lochia Amount: Scant Lochia Color: Rubra/Red Perineum Description: Intact, Minimal Bruising/Swelling Episiotomy/Laceration: None Bladder Status: Voiding Urinary Elimination: Voided - Exam General: Alert, Oriented HEENT: Pupils Equal Neck: Supple Lungs: Clear to Auscultation, Normal Respiratory Effort Cardiovascular: Regular Rate, Regular Rhythm GI/Abdominal Exam: Normal Bowel Sounds, Soft, Non-Tender, No Organomegaly, No Distention, No Abnormal Bruit, No Mass, Pelvis Stable Extremities: Normal Inspection, Normal Range of Motion, Non-Tender, No Pedal Edema, Normal Capillary Refill Skin: Warm, Dry, Intact Wound/Incisions: Healing Well Neurological: No New Focal Deficit Psy/Mental Status: Alert, Normal Affect, Normal Mood - Problem List Review Problem List Initiated/Reviewed/Updated: Yes - Assessment Assessment:: doing well. discharge in am.
--- NOTE | 2017-10-26 08:55 | PCM.DCSUM1 ---
Discharge Summary - Hospital Course Diagnosis: Stroke: No - Discharge Data Discharge Date: 10/26/17 Discharge Disposition: Home, Self-Care 01 Condition: Good - Patient Summary/Data Operative Procedure(s) Performed: Repeat LTCS - Discharge Plan Home Medications: Home Meds [id number]/FA/Omega3/Dha/Fish Oil [ Gummies] 1 each PO DAILY 04/16/17 [ History] Referrals: [facility] [Outside] Katie Mays CNM [Mid-] - (1 week- November 09 @ 10:45am w/ Katie Mays 6 week- December 21 @ 10:45am w/ Katie Mays ) - General Info Date of Service: 10/26/17 Functional Status: Reports: Pain Controlled - Review of Systems General: Reports: No Symptoms HEENT: Reports: No Symptoms Pulmonary: Reports: No Symptoms Cardiovascular: Reports: No Symptoms Gastrointestinal: Reports: No Symptoms Genitourinary: Reports: No Symptoms Musculoskeletal: Reports: No Symptoms Skin: Reports: No Symptoms Neurological: Reports: No Symptoms Psychiatric: Reports: No Symptoms - Patient Data Vitals - Most Recent: Last Vital Signs Temp 36.3 C 10/26/17 07:50 Pulse 87 10/26/17 07:50 Resp 16 10/26/17 07:50 BP 115/81 10/26/17 07:50 Pulse Ox 99 10/26/17 07:50 Weight - Most Recent: 94.801 kg Med Orders - Current: Current Medications Al Hydroxide/Mg Hydroxide (Mag-Al Plus) 30 ml PO Q8H PRN PRN Reason: Heartburn Bisacodyl (Dulcolax) 10 mg RECTAL .ONCE PRN PRN Reason: Constipation Butorphanol Tartrate (Stadol) 1 mg IVPUSH Q1H PRN PRN Reason: Pain Carboprost Tromethamine (Hemabate Ds) 250 mcg IM ASDIRECTED PRN PRN Reason: Post Hemorrhage Diphenhydramine HCl (Benadryl) 25 mg IVPUSH Q6H PRN PRN Reason: Itching or Nausea Docusate Sodium (Colace) 100 mg PO BID [facility] Last Admin: 10/25/17 21:09 Dose: 100 mg Emollient Ointment (Lansinoh Hpa) 0 gm TOP ASDIRECTED PRN PRN Reason: Sore Nipples Tranexamic Acid 1,000 mg/ (Sodium Chloride) 110 mls @ 660 mls/hr IV ONETIME PRN PRN Reason: Bleeding Lactated Ringer's (Ringers, Lactated) 1,000 mls @ 150 mls/hr IV ASDIRECTED [facility] Last Admin: 10/24/17 06:41 Dose: 150 mls/hr Lactated Ringer's (Ringers, Lactated) 1,000 mls @ 125 mls/hr IV ASDIRECTED [facility] Last Admin: 10/24/17 21:49 Dose: 125 mls/hr Ibuprofen (Motrin) 800 mg PO Q8H PRN PRN Reason: mild pain or fever Lidocaine HCl (Xylocaine 1%) 50 ml INJECT .ONCE PRN PRN Reason: Laceration repair Methylergonovine Maleate (Methergine) 0.2 mg IM ASDIRECTED PRN PRN Reason: Post Hemorrhage Misoprostol (Cytotec) 200 mcg PO .ONCE PRN PRN Reason: Post Hemorrhage Nalbuphine HCl (Nubain) 10 mg IVPUSH Q1H PRN PRN Reason: Pain (severe 7-10) Ondansetron HCl (Zofran) 4 mg IV Q4H PRN PRN Reason: Nausea/Vomiting Oxycodone/Acetaminophen (Percocet 325-5 Mg) 1 tab PO Q4H PRN PRN Reason: Pain (moderate 4-6) Last Admin: 10/25/17 11:45 Dose: 1 tab Oxycodone/Acetaminophen (Percocet 325-5 Mg) 2 tab PO Q4H PRN PRN Reason: Pain (moderate 4-6) Last Admin: 10/26/17 05:45 Dose: 2 tab Simethicone (Simethicone) 80 mg PO Q4H PRN PRN Reason: Gas Sodium Chloride (Saline Flush) 10 ml FLUSH ASDIRECTED PRN PRN Reason: Keep Vein Open Sodium Chloride (Saline Flush) 2.5 ml FLUSH ASDIRECTED PRN PRN Reason: Keep Vein Open Sterile Water (Sterile Water For Irrigation) 1,000 ml IRR ASDIRECTED PRN PRN Reason: delivery Discontinued Medications Cefazolin Sodium/Dextrose (Ancef) Confirm Administered Dose 2 gm IV .STK-MED ONE Stop: 10/24/17 07:27 Ephedrine Sulfate (Ephedrine Sulfate) Confirm Administered Dose 50 mg .ROUTE .STK-MED ONE Stop: 10/24/17 07:26 Fentanyl (Sublimaze) 50 mcg IVPUSH Q5M PRN PRN Reason: Pain (severe 7-10) Stop: 10/25/17 08:42 Hydroxyzine Pamoate (Vistaril) Confirm Administered Dose 50 mg .ROUTE .STK-MED ONE Stop: 10/25/17 02:56 Last Admin: 10/26/17 03:30 Dose: Not Given Nitroglycerin/Dextrose (Nitroglycerin 25 Mg/D5w 250 Ml) Confirm Administered Dose 25 mg in 250 mls @ as directed .ROUTE .STK-MED ONE Stop: 10/24/17 07:27 Sodium Chloride (Normal Saline) Confirm Administered Dose 20 mls @ as directed .ROUTE .STK-MED ONE Stop: 10/24/17 07:34 Morphine Sulfate (Duramorph Pf) Confirm Administered Dose 1 mg .ROUTE .STK-MED ONE Stop: 10/24/17 07:26 Nalbuphine HCl (Nubain) 2.5 mg IVPUSH Q3H PRN PRN Reason: Pruritis Stop: 10/25/17 08:42 Last Admin: 10/24/17 14:09 Dose: 2.5 mg Ondansetron HCl (Zofran) Confirm Administered Dose 4 mg .ROUTE .STK-MED ONE Stop: 10/24/17 08:01 Oxytocin (Pitocin) Confirm Administered Dose 30 unit .ROUTE .STK-MED ONE Stop: 10/24/17 07:34 Phenylephrine HCl (Phenylephrine In Ns 100 Mcg/Ml) Confirm Administered Dose 1 mg .ROUTE .STK-MED ONE Stop: 10/24/17 07:50 Promethazine HCl (Phenergan) 25 mg IM ONETIME ONE Stop: 10/24/17 11:43 Last Admin: 10/24/17 11:55 Dose: 25 mg - Exam General: Reports: Alert, Oriented HEENT: Reports: Pupils Equal, Pupils Reactive, EOMI, Mucous Membr. Moist/[place]oll[place] Neck: Reports: Supple Lungs: Reports: Clear to Auscultation, Normal Respiratory Effort Cardiovascular: Reports: Regular Rate, Regular Rhythm GI/Abdominal Exam: Normal Bowel Sounds, Soft, Non-Tender, No Organomegaly, No Distention, No Abnormal Bruit, No Mass, Pelvis Stable (Female) Exam: Normal External Exam, Normal Speculum Exam, Normal Bimanual Exam Rectal (Female) Exam: Normal Exam, Normal Rectal Tone Back Exam: Reports: Normal Inspection, Full Range of Motion Extremities: Normal Inspection, Normal Range of Motion, Non-Tender, No Pedal Edema, Normal Capillary Refill Skin: Reports: Warm, Dry, Intact Wound/Incisions: Reports: Healing Well Neurological: Reports: No New Focal Deficit Psy/Mental Status: Reports: Alert, Normal Affect, Normal Mood
[2017-10-26] MEDS: Docusate Sodium 100 MG Cap PO SCH (11:07)
== END 2017-10-26 11:55 | disposition home or self-care (01) | DRG 766 ==
LOC: MW.OBCHECK 04:36 → MW.OB 04:39 → MW.OBCHECK 06:01 → OBSVTOIN 08:34 → MW.OB 09:29
PROVIDERS: ADMIT Obstetrics & Gynecology; ATTEND Obstetrics & Gynecology
PROC: 10D00Z1 Extraction of Products of Conception, Low, Open Approach (ICD-10-PCS; principal; 2017-10-24)
DX: O45.93 Premature separation of placenta, unspecified, third trimester (principal); Z3A.38 38 weeks gestation of pregnancy; Z37.0 Single live birth
CPT/HCPCS: 36415; 59025; 80048; 82803; 85027; 85384; 85610; 85730; 88307; A9270-GY; J0690; J2274; J2300; J2405; J2550; J2590; J7120

== ENCOUNTER 2021-02-18 13:42 | Emergency (ER) | payer BC ==
[2021-02-18] MEDS ORDERED: Sodium Chloride 0.9% 2.5 ML Syringe FLUSH PRN (14:07)
[2021-02-18] MEDS ORDERED: Sodium Chloride 0.9% 10 ML Syringe FLUSH PRN (14:07)
[2021-02-18] MEDS ORDERED: Sodium Chloride 0.9% 1,000 ML IV ONE (14:08)
--- NOTE | 2021-02-18 14:12 | EDM.PDOC ---
ED HPI GENERAL MEDICAL PROBLEM - General Chief Complaint: Respiratory Problem Stated Complaint: WHEEZING Time Seen by Provider: 02/18/21 13:46 - History of Present Illness INITIAL COMMENTS - FREE TEXT/NARRATIVE: History of present illness: []The patient is experienceing severe shortness of breath, especially on exertion. By ultrasound done 11/28/20 she is 33 weeks and 6 days . She was checked out today on OB floor first and concerns cleared. She is COVID positive with first symptoms and test done 8 days ago. She has negative history lung and heart disease and negative family history premature coronary vessel disease. Review of systems: As per history of present illness and below otherwise all systems reviewed and negative. Past medical history: As per history of present illness and as reviewed below otherwise noncontributory. Surgical history: As per history of present illness and as reviewed below otherwise noncontributory. Social history: No reported history of drug or alcohol abuse. Family history: As per history of present illness and as reviewed below otherwise noncontributory. Physical exam: Constitutional - well developed, well-nourished and in no acute distress HEENT - normocephalic, no evidence of trauma - external nose and mouth normal - no mass in neck and no JVD - mucosae moist EYES - full EOM, PERRL, no icterus - no evidence of inflammation, injection, or drainage Respiratory - significant respiratory distress, equal but limited bilateral expansion, lungs clear to auscultation and no abnormal lung sounds Cardiovascular - Regular Rhythm with S1 and S2 appreciated and no murmur, gallop or rub. GI - abdomen soft without distension or organomegaly other than gravid uterus- normal bowel sounds - no guard or rebound Musculoskeletal no gross deformity of long bones or joints - no tenderness, swelling or edema Neurologic - Alert and oriented times four - CN II-XII grossly intact - motor sensory and coordination symmetrically normal Psychiatric - appropriate mood and affect with normal thought content Hematologic - No petechiae or purpura - mucosa appropriate color and sclera not pale - normal nail bed color and refill Integument - no rash or evidence of trauma - normal turgor Diagnostics: [] Therapeutics: [] Impression: [] Plan: [] Definitive disposition and diagnosis as appropriate pending reevaluation and review of above. - Related Data Allergies Allergy/AdvReac Type Severity Reaction Status Date / Time No Known Allergies Allergy Verified 02/18/21 13:40 Home Meds: Home Meds . 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: Reports: , Other (See Below) Musculoskeletal History: Reports: None Neurological History: Reports: None Psychiatric History: Reports: None Endocrine/Metabolic History: Reports: Obesity/BMI 30+ Hematologic History: Reports: None Immunologic History: Reports: None Oncologic (Cancer) History: Reports: None Dermatologic History: Reports: None - Infectious Disease History Infectious Disease History: Reports: Chicken Pox - Past Surgical History Head Surgeries/Procedures: Reports: None GI Surgical History: Reports: None Female Surgical History: Reports: Section, Other (See Below) Other Female Surgeries/Procedures: Breech presentation Social & Family History - Family History Family Medical History: No Pertinent Family History - Tobacco Use Tobacco Use Status *Q: Never Tobacco User - Caffeine Use Caffeine Use: Reports: Coffee - Recreational Drug Use Recreational Drug Use: No ED ROS GENERAL - Review of Systems Review Of Systems: Comprehensive ROS is negative, except as noted in HPI. ED EXAM, GENERAL - Physical Exam Exam: See Below Free Text/Narrative:: My physical exam is in the HPI Course - Vital Signs Last Recorded V/S: Last Vital Signs Temp 37.2 C 02/18/21 13:53 Pulse 117 H 02/18/21 13:53 Resp 22 H 02/18/21 13:53 BP 107/70 02/18/21 13:53 Pulse Ox 92 L 02/18/21 13:53 - Orders/Labs/Meds Orders: Active Orders 24 hr Category Date Time Status Sodium Chloride 0.9% [Saline Flush] Med 02/18/21 14:07 Active 10 ml FLUSH ASDIRECTED PRN Sodium Chloride 0.9% [Saline Flush] Med 02/18/21 14:07 Active 2.5 ml FLUSH ASDIRECTED PRN Saline Lock Insert [OM.PC] Stat Oth 02/18/21 14:07 Ordered Medication Orders Sodium Chloride (Sodium Chloride 0.9% 10 Ml Syringe) 10 ml FLUSH ASDIRECTED PRN PRN Reason: Keep Vein Open Last Admin: 02/18/21 14:34 Dose: 10 ml Documented by: TREASURE Sodium Chloride (Sodium Chloride 0.9% 2.5 Ml Syringe) 2.5 ml FLUSH ASDIRECTED PRN PRN Reason: Keep Vein Open Last Admin: 02/18/21 14:34 Dose: 2.5 ml Documented by: TREASURE Labs: Laboratory Tests 02/18/21 02/18/21 Range/Units 11:23 11:23 WBC 8.29 (4.0-11.0) K/uL RBC 4.37 (4.30-5.90) M/uL Hgb 13.2 (12.0-16.0) g/dL Hct 38.2 (36.0-46.0) % MCV 87.4 (80.0-98.0) fL MCH 30.2 (27.0-32.0) pg MCHC 34.6 (31.0-37.0) g/dL RDW Std Deviation 47.7 (28.0-62.0) fl RDW Coeff of Shilpi 15 (11.0-15.0) % Plt Count 120 L (150-400) K/uL MPV 11.10 (7.40-12.00) fL Neut % (Auto) 86.7 H (48.0-80.0) % Lymph % (Auto) 9.7 L (16.0-40.0) % Evangeline % (Auto) 3.4 (0.0-15.0) % Eos % (Auto) 0.1 (0.0-7.0) % Baso % (Auto) 0.1 (0.0-1.5) % Neut # (Auto) 7.2 H (1.4-5.7) K/uL Lymph # (Auto) 0.8 (0.6-2.4) K/uL Evangeline # (Auto) 0.3 (0.0-0.8) K/uL Eos # (Auto) 0.0 (0.0-0.7) K/uL Baso # (Auto) 0.0 (0.0-0.1) K/uL Nucleated RBC % 0.0 /100WBC Nucleated RBCs # 0 K/uL Sodium 139 (136-145) mmol/L Potassium 3.3 L (3.5-5.1) mmol/L Chloride 103 (98-107) mmol/L Carbon Dioxide 20.5 L (21.0-32.0) mmol/L BUN 4 L (7.0-18.0) mg/dL Creatinine 0.5 L (0.6-1.0) mg/dL Est Cr Clr Drug Dosing 130.12 mL/min Estimated GFR (MDRD) > 60.0 ml/min Glucose 111 H (74-106) mg/dL Calcium 7.8 L (8.5-10.1) mg/dL Total Bilirubin 1.3 H (0.2-1.0) mg/dL AST 67 H (15-37) IU/L ALT 53 (14-63) IU/L Alkaline Phosphatase 130 H (46-116) U/L Total Protein 6.6 (6.4-8.2) g/dL Albumin 2.3 L (3.4-5.0) g/dL Globulin 4.3 H (2.6-4.0) g/dL Albumin/Globulin Ratio 0.5 L (0.9-1.6) Meds: Medications Generic Name Dose Route Start Last Admin Trade Name Freq PRN Reason Stop Dose Admin Sodium Chloride 10 ml 02/18/21 14:07 02/18/21 14:34 Sodium Chloride 0.9% 10 Ml Syringe FLUSH 10 ml ASDIRECTED PRN Administration Keep Vein Open Sodium Chloride 2.5 ml 02/18/21 14:07 02/18/21 14:34 Sodium Chloride 0.9% 2.5 Ml Syringe FLUSH 2.5 ml ASDIRECTED PRN Administration Keep Vein Open Discontinued Medications Generic Name Dose Route Start Last Admin Trade Name Freq PRN Reason Stop Dose Admin Sodium Chloride 1,000 mls @ 500 mls/hr 02/18/21 14:08 02/18/21 14:34 Normal Saline IV 02/18/21 16:07 500 mls/hr .Bolus ONE Administration - Re-Assessments/Exams Free Text/Narrative Re-Assessment/Exam: 02/18/21 17:35 In summary the patient was discussed with internal medicine and the radiologist we decided we needed to do a CT to rule out pulmonary embolus. She has COVID-19 pneumonia bilaterally no pulmonary embolus. She is not hypoxic even with exertion to substantiate the need for admission or home oxygen. She is however within the window for monoclonal antibodies and agreed. The monoclonal antibody infusion people were notified and they will contact her in the morning. Departure - Departure Time of Disposition: 17:28 Disposition: Home, Self-Care 01 Condition: Good Clinical Impression: Pneumonia due to COVID-19 virus, Intrauterine - Discharge Information Instructions: COVID-19 Vaccine Information, COVID-19 Frequently Asked Questions, and COVID-19, COVID-19: What to Do If You Are Sick- [facility] (07/16/2020), COVID-19: Quarantine vs. Isolation - [facility] (04/17/2020) Referrals: Morgan Bernstein MD [Primary Care Provider] - Forms: ED Department Discharge Sepsis Event Note (ED) - Evaluation Sepsis Screening Result: No Definite Risk - Focused Exam Vital Signs: Vital Signs Temp Pulse Resp BP Pulse Ox 02/18/21 13:53 37.2 C 117 H 22 H 107/70 92 L - My Orders Last 24 Hours: My Active Orders 02/18/21 14:07 Sodium Chloride 0.9% [Saline Flush] 10 ml FLUSH ASDIRECTED PRN Sodium Chloride 0.9% [Saline Flush] 2.5 ml FLUSH ASDIRECTED PRN Saline Lock Insert [OM.PC] Stat - Assessment/Plan Last 24 Hours: My Active Orders 02/18/21 14:07 Sodium Chloride 0.9% [Saline Flush] 10 ml FLUSH ASDIRECTED PRN Sodium Chloride 0.9% [Saline Flush] 2.5 ml FLUSH ASDIRECTED PRN Saline Lock Insert [OM.PC] Stat
--- NOTE | 2021-02-18 14:42 | CR ---
INDICATION: Dyspnea. TECHNIQUE: Chest 1 view. COMPARISON: None. FINDINGS: Low lung volumes. There are extensive patchy opacities throughout the lungs bilaterally suspicious for pneumonia. No pleural effusion or pneumothorax. Heart size within normal limits for portable technique. Mild right convex thoracic curve. IMPRESSION: Extensive bilateral patchy pulmonary opacities suspicious for pneumonia. Rule out COVID. Dictated by Dara Alexander MD @ 02/18/2021 2:41:33 PM (Electronically Signed)
[2021-02-18 15:09] LABS: BLOOD UREA NITROGEN,BUN 4 mg/dL (7.0-18.0); CARBON DIOXIDE,CO2 20.5 mmol/L (21.0-32.0); CHLORIDE,CL 103 mmol/L (98-107); GLUCOSE RANDOM 111 mg/dL (74-106); POTASSIUM,K 3.3 mmol/L (3.5-5.1); SODIUM,NA 139 mmol/L (136-145)
--- NOTE | 2021-02-18 17:20 | CT ---
INDICATION: Respiratory distress. Positive COVID test. COMPARISON: Plain films same date. TECHNIQUE: 100 mL Isovue-370 IV contrast. FINDINGS: Diffuse patchy geographic reticular and ground-glass and semi opaque airspace opacities in both lungs commensurate with COVID-19 pneumonia. No definite pulmonary embolism. Lung bases are poorly assessed due to motion and bolus timing. Dense low-attenuation of the liver parenchyma. Visualized airways are patent. No pathologic adenopathy appreciated in the mediastinum or anita. IMPRESSION: 1. Moderately prominent bilateral pneumonia consistent with COVID-19. No definitive pulmonary embolism although motion and bolus timing limits assessment at the bases. 2. Prominent hepatic steatosis. The liver may be enlarged. Please note that all CT scans at this facility use dose modulation, iterative reconstruction, and/or weight-based dosing when appropriate to reduce radiation dose to as low as reasonably achievable. Dictated by Truman Rendon MD @ 02/18/2021 5:19:31 PM (Electronically Signed)
[2021-02-18] MEDS ORDERED: Iopamidol 755 Mg/ML 100 ML Bottle IVPUSH ONE (17:54)
[2021-02-18 18:04] VITALS: BP 105/61; PULSE 108
== END 2021-02-18 18:07 | disposition home or self-care (01) ==
LOC: MW.ED 13:42
DX: O98.513 Other viral diseases complicating pregnancy, third trimester (principal); U07.1 COVID-19; J12.82 Pneumonia due to coronavirus disease 2019; Z3A.33 33 weeks gestation of pregnancy
CPT/HCPCS: 36415; 71045; 71275; 80053; 85025; 99285; J7030; Q9967

== ENCOUNTER 2021-03-19 05:13 | Inpatient (IN) | payer BC ==
[2021-03-19] MEDS ORDERED: Sodium Chloride 0.9% 2.5 ML Syringe FLUSH PRN (05:22)
[2021-03-19] MEDS ORDERED: Sodium Chloride 0.9% 10 ML Syringe FLUSH PRN (05:22)
[2021-03-19] MEDS ORDERED: Citric Acid/Sodium Citrate Solution 30 ML Cup PO ONE (05:22)
[2021-03-19] MEDS ORDERED: Sodium Chloride 0.9% 20 ML SDV IV PRN (05:22)
[2021-03-19] MEDS ORDERED: Oxytocin/0.9 % Sodium Chloride 30 UNIT/500 ML BAG IV SCH (05:30)
[2021-03-19] MEDS: Lactated Ringers 1,000 ML IV SCH ×2 (05:45→06:40)
--- NOTE | 2021-03-19 06:51 | PCM.PREANE ---
Preanesthetic Assessment - Anesthesia/Transfusion/Family Hx Anesthesia History: Prior Anesthesia Without Reaction Transfusion History: No Prior Transfusion(s) Intubation History: Unknown - Review of Systems General: No Symptoms Pulmonary: No Symptoms Cardiovascular: No Symptoms Gastrointestinal: No Symptoms Neurological: No Symptoms Other: Reports: None - Physical Assessment NPO Status Date: 03/19/21 NPO Status Time: 00:00 Height: 5 ft 2 in Weight: 220 lb ASA Class: 2 Mental Status: Alert & Oriented x3 Airway Class: Mallampati = 2 Dentition: Reports: Normal Dentition Thyro-Mental Finger Breadths: 3 Mouth Opening Finger Breadths: 3 ROM/Head Extension: Full Lungs: Clear to Auscultation, Normal Respiratory Effort Cardiovascular: Regular Rate, Regular Rhythm - Lab Values: Laboratory Last Values WBC 5.75 K/uL (4.0-11.0) 03/19/21 05:44 RBC 3.82 M/uL (4.30-5.90) L 03/19/21 05:44 Hgb 11.6 g/dL (12.0-16.0) L 03/19/21 05:44 Hct 34.5 % (36.0-46.0) L 03/19/21 05:44 MCV 90.3 fL (80.0-98.0) 03/19/21 05:44 MCH 30.4 pg (27.0-32.0) 03/19/21 05:44 MCHC 33.6 g/dL (31.0-37.0) 03/19/21 05:44 RDW Std Deviation 48.6 fl (28.0-62.0) 03/19/21 05:44 RDW Coeff of Shilpi 15 % (11.0-15.0) 03/19/21 05:44 Plt Count 175 K/uL (150-400) 03/19/21 05:44 MPV 12.30 fL (7.40-12.00) H 03/19/21 05:44 Nucleated RBC % 0.0 /100WBC 03/19/21 05:44 Nucleated RBCs # 0 K/uL 03/19/21 05:44 - Allergies Allergies/Adverse Reactions: Allergies Allergy/AdvReac Type Severity Reaction Status Date / Time No Known Allergies Allergy Verified 03/13/21 08:16 - Acknowledgements Anesthesia Type Planned: Spinal Pt an Appropriate Candidate for the Planned Anesthesia: Yes Alternatives and Risks of Anesthesia Discussed w Pt/Guardian: Yes Pt/Guardian Understands and Agrees with Anesthesia Plan: Yes PreAnesthesia Questionnaire - Past Health History Medical/Surgical History: Denies Medical/Surgical History HEENT History: Reports: Other (See Below) Other HEENT History: wears contacts Cardiovascular History: Reports: None Respiratory History: Reports: None Gastrointestinal History: Reports: None Genitourinary History: Reports: None 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: Musculoskeletal History: Reports: None Neurological History: Reports: None Psychiatric History: Reports: None Endocrine/Metabolic History: Reports: Obesity/BMI 30+ Hematologic History: Reports: None Immunologic History: Reports: None Oncologic (Cancer) History: Reports: None Dermatologic History: Reports: None - Infectious Disease History Infectious Disease History: Reports: Chicken Pox - Past Surgical History Head Surgeries/Procedures: Reports: None HEENT Surgical History: Reports: None Cardiovascular Surgical History: Reports: None Respiratory Surgical History: Reports: None GI Surgical History: Reports: None Female Surgical History: Reports: Section, Other (See Below) Other Female Surgeries/Procedures: c/section x2 Endocrine Surgical History: Reports: None Neurological Surgical History: Reports: None Musculoskeletal Surgical History: Reports: None Oncologic Surgical History: Reports: None Dermatological Surgical History: Reports: None - SUBSTANCE USE Tobacco Use Status *Q: Never Tobacco User - HOME MEDS Home Medications: Home Meds Pnv No.95/Ferrous Fum/Folic AC [ Vitamin Tablet] 1 tab PO DAILY 03/13/21 [History] - CURRENT (IN HOUSE) MEDS Current Meds: Current Medications Oxytocin/Sodium Chloride (Oxytocin 30 Unit In Ns 0.9% 500 Ml Premix) 30 unit in 500 mls @ 250 mls/hr IV TITRATE NATE Lactated Ringer's (Ringers, Lactated) 1,000 mls @ 500 mls/hr IV BOLUS NATE Last Admin: 03/19/21 05:45 Dose: 500 mls/hr Documented by: Sodium Chloride (Sodium Chloride 0.9% 10 Ml Syringe) 10 ml FLUSH ASDIRECTED PRN PRN Reason: Keep Vein Open Sodium Chloride (Sodium Chloride 0.9% 2.5 Ml Syringe) 2.5 ml FLUSH ASDIRECTED PRN PRN Reason: Keep Vein Open Sodium Chloride (Sodium Chloride 0.9% 20 Ml Sdv) 10 ml IV ASDIRECTED PRN PRN Reason: IV Use Discontinued Medications Citric Acid/Sodium Citrate (Citric Acid/Sodium Citrate Solution 30 Ml Cup) 30 ml PO ONETIME ONE Stop: 03/19/21 05:23
[2021-03-19] MEDS ORDERED: diphenhydrAMINE 50 MG/ML SDV IVPUSH PRN (06:52)
[2021-03-19] MEDS ORDERED: Ondansetron 4 MG/2 ML SDV IVPUSH PRN ×2 (06:52)
[2021-03-19] MEDS ORDERED: fentaNYL 100 MCG/2 ML SDV IVPUSH PRN ×2 (06:52)
[2021-03-19] MEDS ORDERED: Nalbuphine 10 MG/1 ML Vial IVPUSH PRN (06:52)
[2021-03-19] MEDS ORDERED: ePHEDrine 50 MG/ML SDV IVPUSH PRN (06:52)
[2021-03-19] MEDS ORDERED: Morphine 2 MG/ML SYRINGE IVPUSH PRN (06:52)
[2021-03-19] MEDS ORDERED: Naloxone 0.4 MG/ML SDV IVPUSH PRN (06:52)
[2021-03-19] MEDS ORDERED: Metoclopramide 10 MG/2 ML SDV IVPUSH PRN (06:52)
[2021-03-19] MEDS ORDERED: Albuterol 0.083% 2.5 MG/3 ML Neb Soln NEB PRN (06:52)
[2021-03-19] MEDS ORDERED: HYDROmorphone 1 MG/ML Syringe IVPUSH PRN (06:52)
[2021-03-19] MEDS ORDERED: Oxytocin 10 Units/1 ML SDV ONE (06:58)
[2021-03-19] MEDS ORDERED: Ondansetron 4 MG/2 ML SDV ONE ×2 (06:58→07:46)
[2021-03-19] MEDS ORDERED: Dexamethasone 4 MG/ML 5 ML MDV ONE (06:58)
[2021-03-19] MEDS ORDERED: ceFAZolin 1 GM Vial ONE (06:58)
[2021-03-19] MEDS ORDERED: Morphine PF 10 MG/10 ML SDV ONE (06:59)
[2021-03-19] MEDS ORDERED: fentaNYL 100 MCG/2 ML SDV ONE (06:59)
[2021-03-19] MEDS ORDERED: Octyl 2-Cyanoacrylate 1 Tube ONE (07:41)
[2021-03-19] MEDS ORDERED: Benzocaine/Menthol 20%-0.5% Spray 78 GM Cannister TOP PRN (07:58)
[2021-03-19] MEDS ORDERED: Bisacodyl 10 MG Supp RECTAL PRN (07:58)
[2021-03-19] MEDS ORDERED: Witch Hazel Medicated Pads 40/Jar TOP PRN (07:58)
[2021-03-19] MEDS ORDERED: Acetaminophen 500 MG Tab PO PRN ×2 (07:58)
[2021-03-19] MEDS ORDERED: oxyCODONE 5 MG Tab PO PRN (07:58)
[2021-03-19] MEDS ORDERED: Lanolin 100% Cream 7 GM Tube TOP PRN (07:58)
[2021-03-19] MEDS ORDERED: Ibuprofen 400 MG Tab PO PRN (07:58)
--- NOTE | 2021-03-19 07:58 | PCM.LDHP ---
L&D History of Present Illness - General Date of Service: 03/19/21 Admit Problem/Dx: Patient Status Order with Admit Dx/Problem 03/19/21 05:22 Patient Status [ADT] Routine Admission Diagnosis/Problem Admission Diagnosis/Problem Source of Information: Patient History Limitations: Reports: No Limitations - History of Present Illness Improves with: Reports: None Worsens with: Reports: None Associated Symptoms: Reports: N - Related Data Allergies/Adverse Reactions: Allergies Allergy/AdvReac Type Severity Reaction Status Date / Time No Known Allergies Allergy Verified 03/13/21 08:16 Home Medications: Home Meds Pnv No.95/Ferrous Fum/Folic AC [ Vitamin Tablet] 1 tab PO DAILY 03/13/21 [History] Past Medical History - Past Health History Medical/Surgical History: Denies Medical/Surgical History HEENT History: Reports: Other (See Below) Other HEENT History: wears contacts Cardiovascular History: Reports: None Respiratory History: Reports: None Gastrointestinal History: Reports: None Genitourinary History: Reports: None [employer] History: Reports: , Spontaneous Musculoskeletal History: Reports: None Neurological History: Reports: None Psychiatric History: Reports: None Endocrine/Metabolic History: Reports: Obesity/BMI 30+ Hematologic History: Reports: None Immunologic History: Reports: None Oncologic (Cancer) History: Reports: None Dermatologic History: Reports: None - Infectious Disease History Infectious Disease History: Reports: Chicken Pox - Past Surgical History Head Surgeries/Procedures: Reports: None HEENT Surgical History: Reports: None Cardiovascular Surgical History: Reports: None Respiratory Surgical History: Reports: None GI Surgical History: Reports: None Female Surgical History: Reports: Section, Other (See Below) Other Female Surgeries/Procedures: c/section x2 Endocrine Surgical History: Reports: None Neurological Surgical History: Reports: None Musculoskeletal Surgical History: Reports: None Oncologic Surgical History: Reports: None Dermatological Surgical History: Reports: None Social & Family History - Family History Family Medical History: No Pertinent Family History - Tobacco Use Tobacco Use Status *Q: Never Tobacco User Second Hand Smoke Exposure: No - Caffeine Use Caffeine Use: Reports: Coffee - Recreational Drug Use Recreational Drug Use: No Drug Use in Last 12 Months: No H&P Review of Systems - Review of Systems: Review Of Systems: See Below General: Reports: No Symptoms HEENT: Reports: No Symptoms Pulmonary: Reports: No Symptoms Cardiovascular: Reports: No Symptoms Gastrointestinal: Reports: No Symptoms Genitourinary: Reports: No Symptoms Musculoskeletal: Reports: No Symptoms Skin: Reports: No Symptoms Psychiatric: Reports: No Symptoms Neurological: Reports: No Symptoms Hematologic/Lymphatic: Reports: No Symptoms Immunologic: Reports: No Symptoms L&D Exam - Exam Exam: See Below - Vital Signs Weight: 97.069 kg - OB Specific Movement: Active Heart Tones: Present Presentation: Vertex - Dow Score Dow Score Cervix Position: Midposition Dow Score Consistency: Medium Dow Score Effacement: 51-70% Dow Score Dilation: 1-2 cm Dow Score 's Station: -3 Dow Score Total: 5 - Exam General: Alert, Oriented HEENT: PERRLA, Conjunctiva Clear, EACs Clear, EOMI, Hearing Intact, Mucosa Moist & [place], Nares Patent, Normal Nasal Septum, Posterior Pharynx Clear, TMs Clear Neck: Supple, Trachea Midline Lungs: Clear to Auscultation, Normal Respiratory Effort Cardiovascular: Regular Rate, Regular Rhythm GI/Abdominal Exam: Normal Bowel Sounds, Soft, Non-Tender, No Organomegaly, No Distention, No Abnormal Bruit, No Mass, Pelvis Stable Rectal Exam: Normal Exam, Normal Rectal Tone Genitourinary: Normal external exam, Normal bimanual exam, Normal speculum exam Back Exam: Normal Inspection, Full Range of Motion Extremities: Normal Inspection, Normal Range of Motion, Non-Tender, No Pedal Edema, Normal Capillary Refill Skin: Warm, Dry, Intact Neurological: Cranial Nerves Intact, Reflexes Equal Bilateral Psychiatric: Alert, Normal Affect, Normal Mood - Patient Data Lab Results Last 24 hrs: Laboratory Results - last 24 hr 03/19/21 Range/Units 05:44 WBC 5.75 (4.0-11.0) K/uL RBC 3.82 L (4.30-5.90) M/uL Hgb 11.6 L (12.0-16.0) g/dL Hct 34.5 L (36.0-46.0) % MCV 90.3 (80.0-98.0) fL MCH 30.4 (27.0-32.0) pg MCHC 33.6 (31.0-37.0) g/dL RDW Std Deviation 48.6 (28.0-62.0) fl RDW Coeff of Shilpi 15 (11.0-15.0) % Plt Count 175 (150-400) K/uL MPV 12.30 H (7.40-12.00) fL Nucleated RBC % 0.0 /100WBC Nucleated RBCs # 0 K/uL Result Diagrams: 03/19/21 05:44 Problem List Initiated/Reviewed/Updated: Yes Orders Last 24hrs: Active Orders 24 hr Category Date Time Status Patient Status [ADT] Routine ADT 03/19/21 05:22 Active Antiembolic Devices [RC] PER UNIT ROUTINE Care 03/19/21 05:23 Active Blood Glucose Check, Bedside [RC] PRN Care 03/19/21 06:52 Active Bradycardia-Neuroaxis [employer] [RC] ROUTINE Care 03/19/21 06:52 Active Non Stress Test [RC] PER UNIT ROUTINE Care 03/19/21 05:22 Active Hypertension-Neuroaxis [employer] [RC] ROUTINE Care 03/19/21 06:52 Active Hypotension-Neuroaxis [employer] [RC] ROUTINE Care 03/19/21 06:52 Active Insert Urinary Catheter [OM.PC] Routine Care 03/19/21 05:22 Ordered Notify Provider Vital Signs [RC] ASDIRECTED Care 03/19/21 06:52 Active Notify Provider Vital Signs [RC] PRN Care 03/19/21 10:00 Active Overnight Pulse Oximetry [RC] Click to Edit Care 03/19/21 06:52 Active Oxygen Therapy [RC] PER UNIT ROUTINE Care 03/19/21 06:52 Active Oxygen Therapy [RC] PRN Care 03/19/21 06:52 Active Peripheral IV Care [RC] PRN Care 03/19/21 05:22 Active Procedure Site Prep Instruct [RC] ASDIRECTED Care 03/19/21 05:22 Active RT Aerosol Therapy [RC] ASDIRECTED Care 03/19/21 06:52 Active RT Aerosol Therapy [RC] ASDIRECTED Care 03/19/21 06:52 Active RT BiPAP/CPAP [RC] ASDIRECTED Care 03/19/21 06:52 Active Up ad Ginny [RC] ASDIRECTED Care 03/19/21 05:22 Active Urinary Catheter Assessment [RC] ASDIRECTED Care 03/19/21 05:23 Active Verify Patient Consent Obtain [RC] ASDIRECTED Care 03/19/21 05:22 Active Vital Signs [RC] PER UNIT ROUTINE Care 03/19/21 05:22 Active Vital Signs [RC] Q1H Care 03/19/21 06:52 Active Vital Signs [RC] Q5M Care 03/19/21 06:52 Hold RPR (SYPHILIS SERO) W/ RFLX [REF] Routine Lab 03/19/21 05:44 Received TYPE AND SCREEN [BBK] Routine Lab 03/19/21 05:44 Received Acetaminophen/oxyCODONE [Percocet 325-5 MG] Med 03/19/21 06:52 Active 2 tab PO Q6H PRN Albuterol [Proventil Neb Soln] Med 03/19/21 06:52 Active 2.5 mg NEB ONETIME PRN HYDROmorphone [Dilaudid] Med 03/19/21 06:52 Active 1 mg IVPUSH Q10M PRN Lactated Ringers [Ringers, Lactated] 1,000 ml Med 03/19/21 05:30 Active IV BOLUS Metoclopramide [Reglan] Med 03/19/21 06:52 Active 10 mg IVPUSH ONETIME PRN Morphine Med 03/19/21 06:52 Active 2 mg IVPUSH Q10M PRN Nalbuphine [Nubain] Med 03/19/21 06:52 Active 5 mg IVPUSH Q30M PRN Naloxone [Narcan] Med 03/19/21 06:52 Active 0.1 mg IVPUSH ASDIRECTED PRN Ondansetron [Zofran] Med 03/19/21 06:52 Active 4 mg IVPUSH ONETIME PRN Ondansetron [Zofran] Med 03/19/21 06:52 Active 4 mg IVPUSH Q6H PRN Oxytocin/0.9 % Sodium Chloride [Oxytocin 30 Unit in NS Med 03/19/21 05:30 Active 0.9% 500 ML Premix] 30 unit in 500 ml IV TITRATE Sodium Chloride 0.9% [Normal Saline] Med 03/19/21 05:22 Active 10 ml IV ASDIRECTED PRN Sodium Chloride 0.9% [Saline Flush] Med 03/19/21 05:22 Active 10 ml FLUSH ASDIRECTED PRN Sodium Chloride 0.9% [Saline Flush] Med 03/19/21 05:22 Active 2.5 ml FLUSH ASDIRECTED PRN diphenhydrAMINE [Benadryl] Med 03/19/21 06:52 Active 12.5 mg IVPUSH Q2H PRN droperidoL [Inapsine] Med 03/19/21 06:52 Active 0.625 mg IVPUSH ONETIME PRN ePHEDrine [ePHEDrine sulfate] Med 03/19/21 06:52 Active 10 mg IVPUSH Q5M PRN fentaNYL [Sublimaze] Med 03/19/21 06:52 Active 50 mcg IVPUSH Q15M PRN fentaNYL [Sublimaze] Med 03/19/21 06:52 Active 50 mcg IVPUSH Q5M PRN Peripheral IV Insertion Adult [OM.PC] Routine Oth 03/19/21 05:22 Ordered Pulse Oximetry Continuous Monitoring [OM.PC] Routine Oth 03/19/21 06:52 Ordered Schedule Procedure [COMM] Per Unit Routine Oth 03/19/21 05:22 Ordered Sequential Compression Device [OM.PC] Routine Oth 03/19/21 05:22 Ordered Resuscitation Status Routine Resus Stat 03/19/21 05:22 Ordered Medication Orders Albuterol (Albuterol 0.083% 2.5 Mg/3 Ml Neb Soln) 2.5 mg NEB ONETIME PRN PRN Reason: Wheezing Diphenhydramine HCl (Diphenhydramine 50 Mg/Ml Sdv) 12.5 mg IVPUSH Q2H PRN PRN Reason: Itching Droperidol (Droperidol 5 Mg/2 Ml Sdv) 0.625 mg IVPUSH ONETIME PRN PRN Reason: Nausea/Vomiting Ephedrine Sulfate (Ephedrine 50 Mg/Ml Sdv) 10 mg IVPUSH Q5M PRN PRN Reason: Hypotension Fentanyl (Fentanyl 100 Mcg/2 Ml Sdv) 50 mcg IVPUSH Q15M PRN PRN Reason: Pain (severe 7-10) Fentanyl (Fentanyl 100 Mcg/2 Ml Sdv) 50 mcg IVPUSH Q5M PRN PRN Reason: Pain (mild 1-3) Hydromorphone HCl (Hydromorphone 1 Mg/Ml Syringe) 1 mg IVPUSH Q10M PRN PRN Reason: Pain (moderate 4-6) Oxytocin/Sodium Chloride (Oxytocin 30 Unit In Ns 0.9% 500 Ml Premix) 30 unit in 500 mls @ 250 mls/hr IV TITRATE [facility] Lactated Ringer's (Ringers, Lactated) 1,000 mls @ 500 mls/hr IV BOLUS [facility] Last Admin: 03/19/21 06:40 Dose: 500 mls/hr Documented by: Infusion: 03/19/21 06:40 Dose: 500 mls/hr Documented by: Admin: 03/19/21 05:45 Dose: 500 mls/hr Documented by: BOY Metoclopramide HCl (Metoclopramide 10 Mg/2 Ml Sdv) 10 mg IVPUSH ONETIME PRN PRN Reason: Nausea/Vomiting Morphine Sulfate (Morphine 2 Mg/Ml Syringe) 2 mg IVPUSH Q10M PRN PRN Reason: Pain (severe 7-10) Nalbuphine HCl (Nalbuphine 10 Mg/1 Ml Vial) 5 mg IVPUSH Q30M PRN PRN Reason: Itching Naloxone HCl (Naloxone 0.4 Mg/Ml Sdv) 0.1 mg IVPUSH ASDIRECTED PRN PRN Reason: Respiratory Depression Ondansetron HCl (Ondansetron 4 Mg/2 Ml Sdv) 4 mg IVPUSH Q6H PRN PRN Reason: Nausea Ondansetron HCl (Ondansetron 4 Mg/2 Ml Sdv) 4 mg IVPUSH ONETIME PRN PRN Reason: Nausea/Vomiting Oxycodone/Acetaminophen (Acetaminophen/Oxycodone 325-5 Mg Tab) 2 tab PO Q6H PRN PRN Reason: Pain (moderate 4-6) Sodium Chloride (Sodium Chloride 0.9% 10 Ml Syringe) 10 ml FLUSH ASDIRECTED PRN PRN Reason: Keep Vein Open Sodium Chloride (Sodium Chloride 0.9% 2.5 Ml Syringe) 2.5 ml FLUSH ASDIRECTED PRN PRN Reason: Keep Vein Open Sodium Chloride (Sodium Chloride 0.9% 20 Ml Sdv) 10 ml IV ASDIRECTED PRN PRN Reason: IV Use Assessment/Plan Comment:: Term in for repeat C/section.
[2021-03-19] MEDS ORDERED: ceFAZolin 2 GM in Premix Bag 1 BAG IV ONE (08:01)
[2021-03-19] MEDS ORDERED: Phenylephrine 1% 10 MG/ML SDV ONE (08:16)
--- NOTE | 2021-03-19 08:38 | PCM.OPNOTE ---
- General Post-Op/Procedure Note Date of Surgery/Procedure: 03/19/21 Operative Procedure(s): Repeat C/section. Pre Op Diagnosis: IUP term previous C/sectuon. Post-Op Diagnosis: Same Anesthesia Technique: Spinal Primary Surgeon: Morgan Bernstein Rn Iv Therapy: idalmis Villagomez EBL in mLs: 600 Complications: None Condition: Good
[2021-03-19] MEDS ORDERED: Ropivacaine 0.5% 5 MG/ML 30 ML SDV ONE (08:43)
--- NOTE | 2021-03-19 09:11 | PCM.SN.2 ---
- Free Text/Narrative Note: Anesthesia Start:09 Anesthesia Stop: 902 At conclusion of procedure and following block time out, a BILATERAL TAPS block is placed under US guidance using a 20g 6 inch echogenic stimuplex needle. 20 cc per side of o.5% Naropin was injected. No complications noted. Henry Gottlieb MD
--- NOTE | 2021-03-19 09:46 | PCM48HPAN ---
Post Anesthesia Note - EVALUATION WITHIN 48HRS OF ANESTHETIC Vital Signs in Normal Range: Yes Patient Participated in Evaluation: Yes Respiratory Function Stable: Yes Airway Patent: Yes Cardiovascular Function Stable: Yes Hydration Status Stable: Yes Pain Control Satisfactory: Yes Nausea and Vomiting Control Satisfactory: Yes Mental Status Recovered: Yes
[2021-03-19] MEDS ORDERED: Citric Acid/Sodium Citrate Solution 30 ML Cup ONE (10:38)
[2021-03-19] MEDS ORDERED: Lactated Ringers 1,000 ML IV SCH (12:00)
[2021-03-19] MEDS ORDERED: Morphine 2 MG/ML SYRINGE IM PRN (14:37)
[2021-03-19] MEDS: Ketorolac 30 MG/ML SDV IVPUSH SCH ×2 (15:06→21:11)
[2021-03-19] MEDS: Docusate Sodium 100 MG Cap PO PRN (21:12)
[2021-03-20] MEDS: Ketorolac 30 MG/ML SDV IVPUSH SCH ×2 (02:41→08:54)
--- NOTE | 2021-03-20 07:57 | OR ---
SURGEON: Morgan Bernstein MD DATE OF PROCEDURE: 03/19/2021 PREOPERATIVE DIAGNOSES: 1. Intrauterine . 2. Previous section. POSTOPERATIVE DIAGNOSES: 1. Intrauterine . 2. Previous section. OPERATION PERFORMED: Repeat low transverse section. PRIMARY SURGEON: Morgan Bernstein MD OFFICE PROFESSIONALS: [facility] Villagomez. ANESTHESIA: Spinal, Dr. Henry Gottlieb. ESTIMATED BLOOD LOSS: 600 mL. COMPLICATIONS: None. FINDINGS: Normal uterus, tubes, and ovaries. Male fetus. scores reported to be 8 and 9. The weight is not available. INDICATIONS FOR SURGERY: This patient has had previous section. She is admitted for elective repeat section. She is 39 plus weeks. PROCEDURE IN DETAIL: The patient was brought to the OR, properly identified, and after adequate level of spinal anesthesia, the patient prepped and draped in sterile fashion as usual. Boyle catheter was inserted. Low transverse Pfannenstiel skin incision through the old scar was done. Manish fascia and rectus fascia were opened in direction of the incision. The 2 recti muscles were , and peritoneal cavity was entered, and then low transverse uterine incision was done and extended manually with the hand. Fetus was in a vertex position, delivered without any problem, cried immediately, and scores later on reported to be 8 and 9. The weight was not available. The placenta delivered spontaneous, complete, and intact and then repair of the lower uterine segment done with 2-0 Vicryl continuous interlocking in 2 layers. Inspection of the lower uterine segment shows no oozing, no bleeding. The peritoneal cavity evacuated completely from all blood and blood clot and closed with 3-0 Vicryl continuous. The rectus fascia was closed with #1 PDS double-strand continuous and the Manish's fascia with 3-0 Vicryl continuous and skin with monofilament in subcuticular fashion. Instrument and sponge counts were correct. The patient tolerated the procedure well, went to recovery room in stable general condition. ELLIE / MICHAELA /[id number]
[2021-03-20] MEDS: Docusate Sodium 100 MG Cap PO PRN ×2 (08:55→21:12)
--- NOTE | 2021-03-20 09:04 | PCM.PNPP ---
- General Info Date of Service: 03/20/21 Functional Status: Reports: Pain Controlled - Review of Systems General: Reports: No Symptoms HEENT: Reports: No Symptoms Pulmonary: Reports: No Symptoms Cardiovascular: Reports: No Symptoms Gastrointestinal: Reports: No Symptoms Genitourinary: Reports: No Symptoms Musculoskeletal: Reports: No Symptoms Skin: Reports: No Symptoms Neurological: Reports: No Symptoms Psychiatric: Reports: No Symptoms - General Info Date of Service: 03/20/21 - Patient Data Vital Signs - Most Recent: Last Vital Signs Temp 36.6 C 03/20/21 01:00 Pulse 94 03/20/21 06:30 Resp 19 03/20/21 06:30 BP 98/55 L 03/20/21 05:30 Pulse Ox 95 03/20/21 06:30 Weight - Most Recent: 97.069 kg I&O - Last 24 Hours: Intake & Output 03/19/21 03/20/21 03/20/21 22:59 06:59 14:59 Output Total 500 950 Balance -500 -950 Lab Results - Last 24 Hours: Laboratory Results - last 24 hr 03/20/21 Range/Units 05:30 Hgb 8.9 L (12.0-16.0) g/dL Hct 26.8 L (36.0-46.0) % Med Orders - Current: Current Medications Acetaminophen (Acetaminophen 500 Mg Tab) 500 mg PO Q4H PRN PRN Reason: Pain (mild 1-3) Acetaminophen (Acetaminophen 500 Mg Tab) 1,000 mg PO Q4H PRN PRN Reason: Pain (mild 1-3) Albuterol (Albuterol 0.083% 2.5 Mg/3 Ml Neb Soln) 2.5 mg NEB ONETIME PRN PRN Reason: Wheezing Benzocaine/Menthol (Benzocaine/Menthol 20%-0.5% [place] 78 Gm Cannister) 78 gm TOP ASDIRECTED PRN PRN Reason: Perineal Comfort Measure Bisacodyl (Bisacodyl 10 Mg Supp) 10 mg RECTAL ONETIME PRN PRN Reason: Constipation Diphenhydramine HCl (Diphenhydramine 50 Mg/Ml Sdv) 12.5 mg IVPUSH Q2H PRN PRN Reason: Itching Docusate Sodium (Docusate Sodium 100 Mg Cap) 100 mg PO Q12H PRN PRN Reason: Constipation Last Admin: 03/20/21 08:55 Dose: 100 mg Documented by: Droperidol (Droperidol 5 Mg/2 Ml Sdv) 0.625 mg IVPUSH ONETIME PRN PRN Reason: Nausea/Vomiting Emollient Ointment (Lanolin 100% Cream 7 Gm Tube) 0 gm TOP ASDIRECTED PRN PRN Reason: Sore Nipples Ephedrine Sulfate (Ephedrine 50 Mg/Ml Sdv) 10 mg IVPUSH Q5M PRN PRN Reason: Hypotension Fentanyl (Fentanyl 100 Mcg/2 Ml Sdv) 50 mcg IVPUSH Q15M PRN PRN Reason: Pain (severe 7-10) Fentanyl (Fentanyl 100 Mcg/2 Ml Sdv) 50 mcg IVPUSH Q5M PRN PRN Reason: Pain (mild 1-3) Hydromorphone HCl (Hydromorphone 1 Mg/Ml Syringe) 1 mg IVPUSH Q10M PRN PRN Reason: Pain (moderate 4-6) Oxytocin/Sodium Chloride (Oxytocin 30 Unit In Ns 0.9% 500 Ml Premix) 30 unit in 500 mls @ 250 mls/hr IV TITRATE [facility] Lactated Ringer's (Ringers, Lactated) 1,000 mls @ 500 mls/hr IV BOLUS [facility] Last Admin: 03/19/21 06:40 Dose: 500 mls/hr Documented by: Lactated Ringer's (Ringers, Lactated) 1,000 mls @ 125 mls/hr IV ASDIRECTED [facility] Last Admin: 03/19/21 11:58 Dose: 125 mls/hr Documented by: Ibuprofen (Ibuprofen 400 Mg Tab) 400 mg PO Q4H PRN PRN Reason: Pain (mild 1-3) Ibuprofen (Ibuprofen 800 Mg Tab) 800 mg PO Q6H PRN PRN Reason: Cramping Ketorolac Tromethamine (Ketorolac 30 Mg/Ml Sdv) 30 mg IVPUSH Q6H [facility] Stop: 03/24/21 14:34 Last Admin: 03/20/21 08:54 Dose: 30 mg Documented by: Metoclopramide HCl (Metoclopramide 10 Mg/2 Ml Sdv) 10 mg IVPUSH ONETIME PRN PRN Reason: Nausea/Vomiting Morphine Sulfate (Morphine 2 Mg/Ml Syringe) 2 mg IVPUSH Q10M PRN PRN Reason: Pain (severe 7-10) Morphine Sulfate (Morphine 2 Mg/Ml Syringe) 2 mg IM ONETIME PRN PRN Reason: Pain Nalbuphine HCl (Nalbuphine 10 Mg/1 Ml Vial) 5 mg IVPUSH Q30M PRN PRN Reason: Itching Last Admin: 03/19/21 10:45 Dose: 5 mg Documented by: Naloxone HCl (Naloxone 0.4 Mg/Ml Sdv) 0.1 mg IVPUSH ASDIRECTED PRN PRN Reason: Respiratory Depression Ondansetron HCl (Ondansetron 4 Mg/2 Ml Sdv) 4 mg IVPUSH Q6H PRN PRN Reason: Nausea Last Admin: 03/19/21 09:31 Dose: 4 mg Documented by: Ondansetron HCl (Ondansetron 4 Mg/2 Ml Sdv) 4 mg IVPUSH ONETIME PRN PRN Reason: Nausea/Vomiting Last Admin: 03/19/21 14:26 Dose: 4 mg Documented by: Oxycodone HCl (Oxycodone 5 Mg Tab) 5 mg PO Q2H PRN PRN Reason: Pain (severe 7-10) Oxycodone/Acetaminophen (Acetaminophen/Oxycodone 325-5 Mg Tab) 2 tab PO Q6H PRN PRN Reason: Pain (moderate 4-6) Sodium Chloride (Sodium Chloride 0.9% 10 Ml Syringe) 10 ml FLUSH ASDIRECTED PRN PRN Reason: Keep Vein Open Sodium Chloride (Sodium Chloride 0.9% 2.5 Ml Syringe) 2.5 ml FLUSH ASDIRECTED PRN PRN Reason: Keep Vein Open Sodium Chloride (Sodium Chloride 0.9% 20 Ml Sdv) 10 ml IV ASDIRECTED PRN PRN Reason: IV Use Witch Tonia (Witch Tonia Medicated Pads 40/Jar) 1 pad TOP ASDIRECTED PRN PRN Reason: comfort care Discontinued Medications Cefazolin Sodium (Cefazolin 1 Gm Vial) Confirm Administered Dose 2 gm .ROUTE .STK-MED ONE Stop: 03/19/21 06:59 Citric Acid/Sodium Citrate (Citric Acid/Sodium Citrate Solution 30 Ml Cup) 30 ml PO ONETIME ONE Stop: 03/19/21 05:23 Last Admin: 03/19/21 10:46 Dose: 30 ml Documented by: Citric Acid/Sodium Citrate (Citric Acid/Sodium Citrate Solution 30 Ml Cup) Confirm Administered Dose 30 ml .ROUTE .STK-MED ONE Stop: 03/19/21 10:39 Dexamethasone (Dexamethasone 4 Mg/Ml 5 Ml Mdv) Confirm Administered Dose 20 mg .ROUTE .STK-MED ONE Stop: 03/19/21 06:59 Droperidol (Droperidol 5 Mg/2 Ml Sdv) 0.625 mg IVPUSH ONETIME ONE Stop: 03/19/21 14:36 Last Admin: 03/19/21 15:57 Dose: 0.625 mg Documented by: Fentanyl (Fentanyl 100 Mcg/2 Ml Sdv) Confirm Administered Dose [address] m[address] .[facility]-MED ONE Stop: 03/19/21 07:00 Cefazolin Sodium/Dextrose 2 gm (/ Premix) 50 mls @ 100 mls/hr IV ONETIME ONE Stop: 03/19/21 08:30 Lidocaine HCl (Lidocaine 1% 5 Ml Sdv) Confirm Administered Dose [address]-MED ONE Stop: 03/19/21 07:01 Miscellaneous Medication (Phenylephrine Hcl In 0.9% Nacl 1 Mg/10 Ml Syringe) Confirm Administered Dose 1 mg .ROUTE .ST-MED ONE Stop: 03/19/21 07:01 Miscellaneous Medication (Phenylephrine Hcl In 0.9% Nacl 1 Mg/10 Ml Syringe) Confirm Administered Dose 1 mg .ROUTE .ST-MED ONE Stop: 03/19/21 08:07 Morphine Sulfate (Morphine Pf 10 Mg/10 Ml Sdv) Confirm Administered Dose [address]-MED ONE Stop: 03/19/21 07:00 Octyl Cyanoacrylate (Octyl 2-Cyanoacrylate 1 Tube) Confirm Administered Dose 1 applic .ROUTE .ST-MED ONE Stop: 03/19/21 07:42 Ondansetron HCl (Ondansetron 4 Mg/2 Ml Sdv) Confirm Administered Dose 4 mg .ROUTE .ST-MED ONE Stop: 03/19/21 06:59 Ondansetron HCl (Ondansetron 4 Mg/2 Ml Sdv) Confirm Administered Dose 4 mg .ROUTE .ST-MED ONE Stop: 03/19/21 07:47 Oxytocin (Oxytocin 10 Units/1 Ml Sdv) Confirm Administered Dose 20 unit .ROUTE .ST-MED ONE Stop: 03/19/21 06:59 Phenylephrine HCl (Phenylephrine 1% 10 Mg/Ml Sdv) Confirm Administered Dose 10 mg .ROUTE .STK-MED ONE Stop: 03/19/21 08:17 Ropivacaine (Ropivacaine 0.5% 5 Mg/Ml 30 Ml Sdv) Confirm Administered Dose 30 ml .ROUTE .STK-MED ONE Stop: 03/19/21 08:44 - Infant Interaction Infant Disposition, : in Room with Family Infant Interaction: Holding Infant Feeding: Attempted ; Nursed Fair/Poor Support Person: - Recovery Exam Fundal Tone: Firm Fundal Level: 1 Fingerbreadths Below Umbilicus Fundal Placement: Midline Lochia Amount: Scant Lochia Color: Rubra/Red Bladder Status: Indwelling Catheter in Place - Exam General: Alert, Oriented HEENT: Pupils Equal Neck: Supple Lungs: Clear to Auscultation, Normal Respiratory Effort Cardiovascular: Regular Rate, Regular Rhythm GI/Abdominal Exam: Normal Bowel Sounds, Soft, Non-Tender, No Organomegaly, No Distention, No Abnormal Bruit, No Mass, Pelvis Stable Extremities: Normal Inspection, Normal Range of Motion, Non-Tender, No Pedal Edema, Normal Capillary Refill Skin: Warm, Dry, Intact Wound/Incisions: Healing Well Neurological: No New Focal Deficit Psy/Mental Status: Alert, Normal Affect, Normal Mood - Problem List Review Problem List Initiated/Reviewed/Updated: Yes - My Orders Last 24 Hours: My Active Orders 03/19/21 10:00 Notify Provider Vital Signs [RC] PRN 03/19/21 Lunch Regular Diet [DIET] 03/19/21 12:00 Lactated Ringers [Ringers, Lactated] 1,000 ml IV ASDIRECTED - Assessment Assessment:: Postoperative day section patient is doing well ambulatory voiding without any problem on regular diet and passing gas. She will be discharged tomorrow - Plan Plan:: Term in for repeat C/section.
[2021-03-20] MEDS: Ibuprofen 800 MG Tab PO PRN (16:54)
[2021-03-20] MEDS: Acetaminophen/oxyCODONE 325-5 MG Tab PO PRN (16:55)
[2021-03-21] MEDS: Ibuprofen 800 MG Tab PO PRN ×2 (00:13→10:17)
[2021-03-21] MEDS: Acetaminophen/oxyCODONE 325-5 MG Tab PO PRN ×3 (00:14→12:40)
[2021-03-21 09:15] VITALS: BP 112/68; PULSE 83
[2021-03-21] MEDS: Docusate Sodium 100 MG Cap PO PRN (10:17)
--- NOTE | 2021-03-21 10:51 | PCM.DCSUM1 ---
Discharge Summary - Hospital Course Diagnosis: Stroke: No - Discharge Data Discharge Date: 03/21/21 Discharge Disposition: Home, Self-Care 01 Condition: Good - Referral to Home Health Primary Care Physician: PCP None - Patient Summary/Data Operative Procedure(s) Performed: Repeat C/section. - Patient Instructions Diet: Usual Diet as Tolerated Activity: As Tolerated Driving: Do Not Drive Showering/Bathing: May Shower Wound/Incision Care: Keep Operative Site/Wound Site Clean and Dry Notify Provider of: Nausea and/or Vomiting - Discharge Plan Home Medications: Home Meds Pnv No.95/Ferrous Fum/Folic AC [ Vitamin Tablet] 1 tab PO DAILY 03/13/21 [History] Patient Handouts: Care After Delivery Referrals: Deedee Echols [Ordering Only Provider] - 05/05/21 1:30 pm (Six week post appointment. Bring insurance and ID cards with you. Masks are required.) Morgan Bernstein MD [Physician] - 03/25/21 2:45 pm (One week post-op checkup. You may bring your with to your appointment. Bring insurance and ID cards with. Masks are required.) - Discharge Summary/Plan Comment DC Time >30 min.: Yes Total # of Minutes for Discharge Time: 30 - General Info Date of Service: 03/21/21 Functional Status: Reports: Pain Controlled - Review of Systems General: Reports: No Symptoms HEENT: Reports: No Symptoms Pulmonary: Reports: No Symptoms Cardiovascular: Reports: No Symptoms Gastrointestinal: Reports: No Symptoms Genitourinary: Reports: No Symptoms Musculoskeletal: Reports: No Symptoms Skin: Reports: No Symptoms Neurological: Reports: No Symptoms Psychiatric: Reports: No Symptoms - Patient Data Vitals - Most Recent: Last Vital Signs Temp 36.2 C 03/21/21 08:05 Pulse 83 03/21/21 08:05 Resp 16 03/21/21 08:05 BP 112/68 03/21/21 08:05 Pulse Ox 98 03/21/21 08:05 Weight - Most Recent: 97.069 kg Lab Results - Last 24 hrs: Laboratory Results - last 24 hr 03/19/21 Range/Units 05:44 RPR Non-Reac (Non-Reac) Med Orders - Current: Current Medications Acetaminophen (Acetaminophen 500 Mg Tab) 500 mg PO Q4H PRN PRN Reason: Pain (mild 1-3) Acetaminophen (Acetaminophen 500 Mg Tab) 1,000 mg PO Q4H PRN PRN Reason: Pain (mild 1-3) Albuterol (Albuterol 0.083% 2.5 Mg/3 Ml Neb Soln) 2.5 mg NEB ONETIME PRN PRN Reason: Wheezing Benzocaine/Menthol (Benzocaine/Menthol 20%-0.5% [place] 78 Gm Cannister) 78 gm TOP ASDIRECTED PRN PRN Reason: Perineal Comfort Measure Last Admin: 03/20/21 17:22 Dose: 1 can Documented by: Bisacodyl (Bisacodyl 10 Mg Supp) 10 mg RECTAL ONETIME PRN PRN Reason: Constipation Diphenhydramine HCl (Diphenhydramine 50 Mg/Ml Sdv) 12.5 mg IVPUSH Q2H PRN PRN Reason: Itching Docusate Sodium (Docusate Sodium 100 Mg Cap) 100 mg PO Q12H PRN PRN Reason: Constipation Last Admin: 03/21/21 10:17 Dose: 100 mg Documented by: Droperidol (Droperidol 5 Mg/2 Ml Sdv) 0.625 mg IVPUSH ONETIME PRN PRN Reason: Nausea/Vomiting Emollient Ointment (Lanolin 100% Cream 7 Gm Tube) 0 gm TOP ASDIRECTED PRN PRN Reason: Sore Nipples Ephedrine Sulfate (Ephedrine 50 Mg/Ml Sdv) 10 mg IVPUSH Q5M PRN PRN Reason: Hypotension Fentanyl (Fentanyl 100 Mcg/2 Ml Sdv) 50 mcg IVPUSH Q15M PRN PRN Reason: Pain (severe 7-10) Fentanyl (Fentanyl 100 Mcg/2 Ml Sdv) 50 mcg IVPUSH Q5M PRN PRN Reason: Pain (mild 1-3) Hydromorphone HCl (Hydromorphone 1 Mg/Ml Syringe) 1 mg IVPUSH Q10M PRN PRN Reason: Pain (moderate 4-6) Oxytocin/Sodium Chloride (Oxytocin 30 Unit In Ns 0.9% 500 Ml Premix) 30 unit in 500 mls @ 250 mls/hr IV TITRATE NATE Lactated Ringer's (Ringers, Lactated) 1,000 mls @ 500 mls/hr IV BOLUS NATE Last Admin: 03/19/21 06:40 Dose: 500 mls/hr Documented by: Lactated Ringer's (Ringers, Lactated) 1,000 mls @ 125 mls/hr IV ASDIRECTED [facility] Last Admin: 03/19/21 11:58 Dose: 125 mls/hr Documented by: Ibuprofen (Ibuprofen 400 Mg Tab) 400 mg PO Q4H PRN PRN Reason: Pain (mild 1-3) Ibuprofen (Ibuprofen 800 Mg Tab) 800 mg PO Q6H PRN PRN Reason: Cramping Last Admin: 03/21/21 10:17 Dose: 800 mg Documented by: Metoclopramide HCl (Metoclopramide 10 Mg/2 Ml Sdv) 10 mg IVPUSH ONETIME PRN PRN Reason: Nausea/Vomiting Morphine Sulfate (Morphine 2 Mg/Ml Syringe) 2 mg IVPUSH Q10M PRN PRN Reason: Pain (severe 7-10) Morphine Sulfate (Morphine 2 Mg/Ml Syringe) 2 mg IM ONETIME PRN PRN Reason: Pain Nalbuphine HCl (Nalbuphine 10 Mg/1 Ml Vial) 5 mg IVPUSH Q30M PRN PRN Reason: Itching Last Admin: 03/19/21 10:45 Dose: 5 mg Documented by: Naloxone HCl (Naloxone 0.4 Mg/Ml Sdv) 0.1 mg IVPUSH ASDIRECTED PRN PRN Reason: Respiratory Depression Ondansetron HCl (Ondansetron 4 Mg/2 Ml Sdv) 4 mg IVPUSH Q6H PRN PRN Reason: Nausea Last Admin: 03/19/21 09:31 Dose: 4 mg Documented by: Ondansetron HCl (Ondansetron 4 Mg/2 Ml Sdv) 4 mg IVPUSH ONETIME PRN PRN Reason: Nausea/Vomiting Last Admin: 03/19/21 14:26 Dose: 4 mg Documented by: Oxycodone HCl (Oxycodone 5 Mg Tab) 5 mg PO Q2H PRN PRN Reason: Pain (severe 7-10) Oxycodone/Acetaminophen (Acetaminophen/Oxycodone 325-5 Mg Tab) 2 tab PO Q6H PRN PRN Reason: Pain (moderate 4-6) Last Admin: 03/21/21 06:18 Dose: 2 tab Documented by: Sodium Chloride (Sodium Chloride 0.9% 10 Ml Syringe) 10 ml FLUSH ASDIRECTED PRN PRN Reason: Keep Vein Open Sodium Chloride (Sodium Chloride 0.9% 2.5 Ml Syringe) 2.5 ml FLUSH ASDIRECTED PRN PRN Reason: Keep Vein Open Sodium Chloride (Sodium Chloride 0.9% 20 Ml Sdv) 10 ml IV ASDIRECTED PRN PRN Reason: IV Use Witch Tonia (Witch Tonia Medicated Pads 40/Jar) 1 pad TOP ASDIRECTED PRN PRN Reason: comfort care Discontinued Medications Cefazolin Sodium (Cefazolin 1 Gm Vial) Confirm Administered Dose 2 gm .ROUTE .STK-MED ONE Stop: 03/19/21 06:59 Citric Acid/Sodium Citrate (Citric Acid/Sodium Citrate Solution 30 Ml Cup) 30 ml PO ONETIME ONE Stop: 03/19/21 05:23 Last Admin: 03/19/21 10:46 Dose: 30 ml Documented by: Citric Acid/Sodium Citrate (Citric Acid/Sodium Citrate Solution 30 Ml Cup) Confirm Administered Dose 30 ml .ROUTE .STK-MED ONE Stop: 03/19/21 10:39 Dexamethasone (Dexamethasone 4 Mg/Ml 5 Ml Mdv) Confirm Administered Dose 20 mg .ROUTE .STK-MED ONE Stop: 03/19/21 06:59 Droperidol (Droperidol 5 Mg/2 Ml Sdv) 0.625 mg IVPUSH ONETIME ONE Stop: 03/19/21 14:36 Last Admin: 03/19/21 15:57 Dose: 0.625 mg Documented by: Fentanyl (Fentanyl 100 Mcg/2 Ml Sdv) Confirm Administered Dose 100 mcg .ROUTE .STK-MED ONE Stop: 03/19/21 07:00 Cefazolin Sodium/Dextrose 2 gm (/ Premix) 50 mls @ 100 mls/hr IV ONETIME ONE Stop: 03/19/21 08:30 Ketorolac Tromethamine (Ketorolac 30 Mg/Ml Sdv) 30 mg IVPUSH Q6H NATE Stop: 03/24/21 14:34 Last Admin: 03/20/21 08:54 Dose: 30 mg Documented by: Lidocaine HCl (Lidocaine 1% 5 Ml Sdv) Confirm Administered Dose 5 ml .ROUTE .STK-MED ONE Stop: 03/19/21 07:01 Miscellaneous Medication (Phenylephrine Hcl In 0.9% Nacl 1 Mg/10 Ml Syringe) Confirm Administered Dose 1 mg .ROUTE .STK-MED ONE Stop: 03/19/21 07:01 Miscellaneous Medication (Phenylephrine Hcl In 0.9% Nacl 1 Mg/10 Ml Syringe) Confirm Administered Dose 1 mg .ROUTE .STK-MED ONE Stop: 03/19/21 08:07 Morphine Sulfate (Morphine Pf 10 Mg/10 Ml Sdv) Confirm Administered Dose 10 mg .ROUTE .STK-MED ONE Stop: 03/19/21 07:00 Octyl Cyanoacrylate (Octyl 2-Cyanoacrylate 1 Tube) Confirm Administered Dose 1 applic .ROUTE .STK-MED ONE Stop: 03/19/21 07:42 Ondansetron HCl (Ondansetron 4 Mg/2 Ml Sdv) Confirm Administered Dose 4 mg .ROUTE .STK-MED ONE Stop: 03/19/21 06:59 Ondansetron HCl (Ondansetron 4 Mg/2 Ml Sdv) Confirm Administered Dose 4 mg .ROUTE .STK-MED ONE Stop: 03/19/21 07:47 Oxytocin (Oxytocin 10 Units/1 Ml Sdv) Confirm Administered Dose 20 unit .ROUTE .STK-MED ONE Stop: 03/19/21 06:59 Phenylephrine HCl (Phenylephrine 1% 10 Mg/Ml Sdv) Confirm Administered Dose 10 mg .ROUTE .STK-MED ONE Stop: 03/19/21 08:17 Ropivacaine (Ropivacaine 0.5% 5 Mg/Ml 30 Ml Sdv) Confirm Administered Dose 30 ml .ROUTE .STK-MED ONE Stop: 03/19/21 08:44 - Exam General: Reports: Alert, Oriented HEENT: Reports: Pupils Equal, Pupils Reactive, EOMI, Mucous Membr. Moist/[place] Neck: Reports: Supple Lungs: Reports: Clear to Auscultation, Normal Respiratory Effort Cardiovascular: Reports: Regular Rate, Regular Rhythm GI/Abdominal Exam: Normal Bowel Sounds, Soft, Non-Tender, No Organomegaly, No D istention, No Abnormal Bruit, No Mass, Pelvis Stable (Female) Exam: Normal External Exam, Normal Speculum Exam, Normal Bimanual Exam Rectal (Female) Exam: Normal Exam, Normal Rectal Tone Back Exam: Reports: Normal Inspection, Full Range of Motion Extremities: Normal Inspection, Normal Range of Motion, Non-Tender, No Pedal Edema, Normal Capillary Refill Skin: Reports: Warm, Dry, Intact Wound/Incisions: Reports: Healing Well Neurological: Reports: No New Focal Deficit Psy/Mental Status: Reports: Alert, Normal Affect, Normal Mood
== END 2021-03-21 13:25 | disposition home or self-care (01) | DRG 540 ==
LOC: MW.OB 05:13 → UNDOADMIN 05:13 → MW.OB 05:22
PROVIDERS: ADMIT Obstetrics & Gynecology; ATTEND Obstetrics & Gynecology
PROC: 10D00Z1 Extraction of Products of Conception, Low, Open Approach (ICD-10-PCS; principal; 2021-03-19)
DX: O34.211 Maternal care for low transverse scar from previous cesarean delivery (principal); Z3A.39 39 weeks gestation of pregnancy; Z37.0 Single live birth
CPT/HCPCS: 36415; 59025; 64488; 85014; 85018; 85027; 86592; 86850; 86900; 86901; A9270-GY; J0690; J1100; J1790; J1885; J2270; J2300; J2370; J2405; J2590; J2795; J3010; J7120

== ENCOUNTER 2023-01-11 13:39 | Emergency (ER) | payer BC ==
[2023-01-11] MEDS ORDERED: Sodium Chloride 0.9% 2.5 ML Syringe FLUSH PRN (14:00)
[2023-01-11] MEDS ORDERED: Sodium Chloride 0.9% 10 ML Syringe FLUSH PRN (14:00)
[2023-01-11 14:47] LABS: BASOPHILS PERCENT AUTO 0.6 % (0.0-1.5); EOSINOPHILS ABSOLUTE AUTO 0.2 K/uL (0.0-0.7); EOSINOPHILS PERCENT AUTO 3.4 % (0.0-7.0); HEMATOCRIT 27.9 % (36.0-46.0); HEMOGLOBIN 7.9 g/dL (12.0-16.0); IMMATURE RETIC FRACTION 16 %; LYMPHOCYTES ABSOLUTE AUTO 1.9 K/uL (0.6-2.4); LYMPHOCYTES PERCENT AUTO 30.1 % (16.0-40.0); MEAN CORPUSCULAR HEMOGLOBIN 18.5 pg (27.0-32.0); MEAN CORPUSCULAR HGB CONC 28.3 g/dL (31.0-37.0); MEAN CORPUSCULAR VOLUME 65.2 fL (80.0-98.0); MONOCYTES ABSOLUTE AUTO 0.3 K/uL (0.0-0.8); NEUTROPHILS PERCENT AUTO 61.9 % (48.0-80.0); NRBC ABSOLUTE 0 K/uL; PLATELET COUNT,PLT 347 K/uL (150-400); RED BLOOD CELL COUNT 4.28 M/uL (4.30-5.90); RETICULOCYTE COUNT PERCENT 1.7 % (0.5-1.5); WHITE BLOOD CELL COUNT,WBC 6.45 K/uL (4.0-11.0)
[2023-01-11 15:14] LABS: ALANINE AMINOTRANSFERASE,ALT 19 IU/L (14-63); ALBUMIN 3.9 g/dL (3.4-5.0); ALKALINE PHOSPHATASE 58 U/L (46-116); ASPARTATE AMNIOTRANSFERASE,AST 11 IU/L (15-37); BILIRUBIN TOTAL 0.2 mg/dL (0.2-1.0); BLOOD UREA NITROGEN,BUN 12 mg/dL (7.0-18.0); CALCIUM 8.2 mg/dL (8.5-10.1); CARBON DIOXIDE,CO2 25.3 mmol/L (21.0-32.0); CHLORIDE,CL 105 mmol/L (98-107); CREATININE 0.7 mg/dL (0.6-1.0); EST CRCL DRUG DOSING (CG) 91.25 mL/min; GLUCOSE RANDOM 89 mg/dL (74-106); POTASSIUM,K 3.9 mmol/L (3.5-5.1); SODIUM,NA 139 mmol/L (136-145); TSH ULTRASENSITIVE 1.52 uIU/mL (0.36-3.74)
[2023-01-11 15:17] LABS: ESTIMATED GFR 118 mL/min (>60)
[2023-01-11 15:19] LABS: PERCENT FE SATURATION 2.51 % (20-55)
[2023-01-11 16:28] VITALS: BP 110/65; PULSE 72
== END 2023-01-11 16:30 | disposition home or self-care (01) ==
LOC: MW.ED 13:39
DX: D50.9 Iron deficiency anemia, unspecified (principal); N92.0 Excessive and frequent menstruation with regular cycle; E66.9 Obesity, unspecified; Z68.34 Body mass index [BMI] 34.0-34.9, adult
CPT/HCPCS: 36415; 80053; 82728; 83550; 83880; 84443; 84484; 84703; 85025; 85045; 86850; 86900; 86901; 93005; 99285; J3490; 93010; 99283